=== PATIENT | male | born 1980 | race Caucasian/White ===

== ENCOUNTER → 2017-09-02 17:44 | Outpatient (CLI) | payer SELFPAY | PROVIDERS: Visit Provider Anesthesiology Pain Medicine | DX: F11.20 Opioid dependence, uncomplicated (principal); Z79.899 Other long term (current) drug therapy ==

== ENCOUNTER → 2017-10-26 18:06 | Outpatient (CLI) | payer SELFPAY ==
[2017-10-26 18:59] LABS: Amphetamine Urine VISTA NEGATIVE (<1000 ng/mL); Barbiturate Urine VISTA NEGATIVE (< 200 ng/mL); Benzodiazepine Urine VISTA NEGATIVE (< 200 ng/mL); Cocaine Urine VISTA NEGATIVE (< 300 ng/mL); Ecstacy Urine VISTA NEGATIVE (< 500 ng/mL); Methadone Urine VISTA NEGATIVE (< 300 ng/mL); PCP Urine VISTA NEGATIVE (< 25 ng/mL); THC Urine VISTA NEGATIVE (< 50 ng/mL); Vista UDS pH Range 5
== END ==
PROVIDERS: Visit Provider Anesthesiology Pain Medicine
DX: F11.20 Opioid dependence, uncomplicated (principal)
CPT/HCPCS: 80307

== ENCOUNTER 2017-12-08 21:44 | Observation (INO) | payer SELFPAY ==
[2017-12-08 21:45] VITALS: BP 187/84; PULSE 121; RESP 26; TEMP 37.1; O2SAT 88; BMI 36.9
--- NOTE | 2017-12-08 22:46 | EKG12_ITS ---
Test Reason : OVERDOSE Blood Pressure : / mmHG Vent. Rate : 108 BPM Atrial Rate : 108 BPM P-R Int : 164 ms QRS Dur : 072 ms QT Int : 332 ms P-R-T Axes : 042 016 000 degrees QTc Int : 444 ms Sinus tachycardia Otherwise normal ECG Confirmed by SALINA WRIGHT ([id number]), society editor BEAU OLSON ([id number] on 12/14/2017 1:38:40 PM Referred By: VERN Confirmed By:SALINA WRIGHT
--- NOTE | 2017-12-08 22:49 | NURSING ---
NO OLD EKGS IN MUSE.
[2017-12-08 22:54] VITALS: BP 150/98; PULSE 109; RESP 12; O2SAT 92
[2017-12-08 23:03] VITALS: BP 150/98; PULSE 114; RESP 14; O2SAT 92
[2017-12-08] MEDS: 0.9% Normal Saline 1,000 ML 150 ML IV (23:04)
[2017-12-08 23:09] LABS: Absolute Lymphocyte Count 1.58 X10^3/ul (0.83-4.51); Absolute Neutrophil Count 9.5 X10^3/uL (2.0-7.7); Basophil# 0.01 X10^3/uL; Basophil% 0.1 % (0-1); Eosinophil# 0.36 X10^3/uL; Eosinophils% 2.9 % (0-5); Hematocrit 44.3 % (40-54); Lymphocyte # 1.58 X10^3/ul (4.0); Lymphocyte % 12.8 % (19-41); Mean Corp Hgb Conc 33.9 g/gl (32-36); Mean Corpuscular Hgb 29.9 pg (27.0-32.0); Mean Corpuscular Volume 88.4 fL (80-94); Mean Platelet Vol. 9.3 fl (6.2-12.0); Monocyte# 0.88 X10^3/uL; Monocyte% 7.1 % (0-10); Neutrophil # 9.54 X10^3/uL (2.7-7.7); Neutrophil % 76.9 % (47-70); Platelet Count 342 K/mm3 (150-450); RBC Distribution Width SD 41.9 fl (35.1-43.9); Red Blood Count 5.01 M/mm3 (4.6-6.2); White Blood Count 12.4 K/mm3 (4.4-11.0)
[2017-12-08 23:10] LABS: POSITIVE COUNT NO; POSITIVE DIFFERENTIAL NO; POSITIVE MORPHOLOGY NO
[2017-12-08 23:20] LABS: Alcohol, Blood (Medical)-Serum < 3.0 mg/dL
[2017-12-08 23:25] LABS: Anion Gap 8 (5-15); BUN 12 mg/dL (7-18); BUN/Creat Ratio 11.4 RATIO (10-20); Chloride 102 mmol/L (98-107); Creatinine, Serum 1.05 mg/dL (0.70-1.30); EST Glomerular Filtration Rate 84 mL/min (>60); Est Glom Filt Rate - Afr Amer 102 mL/min (>60); Estimated Creatinine Clearance 108.86 ml/min; Glucose 113 mg/dL (74-106); Lactic Acid 1.3 mmol/L (0.4-2.0); Potassium 3.6 mmol/L (3.5-5.1); Sodium Level 139 mmol/L (136-145)
[2017-12-08 23:45] LABS: BNP,B-Type NATRIURETIC PEPTIDE 15.4 pg/mL (0-100)
--- NOTE | 2017-12-08 23:58 | ED.VISSUMM ---
- ER Visit Summary Date of Service: 12/08/17 Chief Complaint: [Drug overdose] History of Present Illness: The patient is a 37 M [presents the emergency department after using heroin tonight. Patient was found by his girlfriend in the car unresponsive. EMS was called who then gave Narcan. Patient did vomit after Narcan. On arrival patient denies feeling suicidal. Patient has been using heroin for the last 4 days. He supposed to be on Suboxone but has not been using it. Patient denies any chest pain. He denies recent illness.] Physical Examination: [HEENT-PERRLA, EOMI. Cranial nerves II through XII grossly intact. TMs clear. Mucous membranes moist. No adenopathy. Cardiovascular-regular rate and rhythm without murmur or ectopy Lungs-clear to auscultation, chest wall stable without crepitus or subcu emphysema Abdomen-normoactive bowel sounds, soft, nontender, no rebound or rigidity, no peritoneal signs. Extremities-intact ?4, normal range of motion, normal pulses, atraumatic]. Patient has +2 edema bilateral lower extremities. Test Results: [EKG obtained on arrival showed a sinus tachycardia with a ventricular rate of 108 bpm. CBC with differential obtained showed a white count 12.4, hemoglobin 15, hematocrit 44, platelet 342. Chemistries unremarkable. Troponin was less than 0.015. BNP was 15. Lactate was 1.3. Alcohol was less than 3. Toxicology screen pending.] Chest x-ray was normal. Emergency Department Course and Treatment: [She was placed on 2 L nasal cannula O2 as his initial O2 sat was 88% on room air.] Treatment Plan: [Admit for observation as there is concern for possible aspiration.] Disposition: [Admit] Impression: [Heroin overdose Hypoxemia with concern for aspiration Bilateral leg edema] This note was generated with [employer] dictation software. It may contain incorrect words, spelling, and punctuation that were not noted in review of the chart prior to signing ED Disposition - Plan for ED Patient: Chief Complaint: Overdose Referrals: Care Physician,No Primary [Primary Care Provider] -
[2017-12-09 00:06] VITALS: BP 170/112; PULSE 100; RESP 15; O2SAT 96
[2017-12-09 00:07] LABS: Amphetamine Urine VISTA NEGATIVE (<1000 ng/mL); Barbiturate Urine VISTA NEGATIVE (< 200 ng/mL); Benzodiazepine Urine VISTA NEGATIVE (< 200 ng/mL); Cocaine Urine VISTA NEGATIVE (< 300 ng/mL); Ecstacy Urine VISTA NEGATIVE (< 500 ng/mL); Methadone Urine VISTA NEGATIVE (< 300 ng/mL); PCP Urine VISTA NEGATIVE (< 25 ng/mL); THC Urine VISTA NEGATIVE (< 50 ng/mL); Vista UDS pH Range 6
--- NOTE | 2017-12-09 00:22 | PCM.HP.STD ---
Problem List (1) Polysubstance dependence Status: Acute (2) Heroin overdose Status: Acute History of Present Illness Date of Admission: 12/09/17 Chief Complaint: Unresponsiveness secondary to heroin overdose ? few hours. The patient is a 37 year old M with a significant history of hypertension, tobacco abuse and heroine use who was found unresponsive by his girlfriend after an heroine overdose. Patient was brought to the emergency department by paramedics. By the emergency room doctor, paramedics reported that patient was in agonal respiration. The patient was given Narcan by the paramedics and he became responsive. Patient vomited after Narcan administration. His oxygen saturation was 82% on room air. At emergency department patient was placed on 2 L of nasal cannula that brought his oxygen saturation to the lower 90s. Patient reports that he has been taking Suboxone and he follows up with for his Suboxone. Past Medical History Medical History: Medical History (Last Updated 12/09/17 @ 01:24 by Angel Gerardo MD) Hypertension I10 Allergies No Known Allergies Allergy (Verified 12/08/17 22:17) Home Medications: Ambulatory Orders Medication Instructions Recorded Buprenorphine HCl/Naloxone HCl 1 film SUBLINGUAL DAILY 12/08/17 [Suboxone 8 mg-2 mg Sl Film] Surgical History: arthroscopy, knee - Right, - - To placing right arm. Lives: With Family Smoking Status: Never smoker Tobacco Use: Chew Alcohol: Occasional - *Family History Maternal History Items: Cancer Paternal History Items: Cancer, Heart Disease Review of Systems Constitutional: Denies: Chills, Fever, Weight Change HEENT: Denies: Head Aches, Sinus Congestion, Sinus Drainage Cardiovascular: Reports: Edema - Bilateral legs. Denies: Palpitations Respiratory: Denies: Cough, Shortness of breath at rest, Sputum production Gastrointestinal: Denies: Abdominal Pain, Nausea, Vomiting Genitourinary: Denies: Dysuria Musculoskeletal: Denies: Joint Pain, Joint Tenderness Skin: Denies: Rash, Wounds Neurological: Denies: Numbness, Tingling, Focal weakness Psychiatric: Denies: Anxiety, Depression, Homicidal Ideations, Suicidal Ideations Hematologic/ Lymphatic: Denies: Easy Bruising, Easy Bleeding VTE Information - Inpt Only VTE Present on Admission: No VTE Mechan Device Prophylaxis: None VTE Pharm Prophylaxis ordered?: No Reason prophylaxis not ordered:: Treatment Not Indicated - Low risk. Patient Problems: Active and Suspected Problems Polysubstance dependence (Acute) Heroin overdose (Acute) - Physical Exam General: Alert, Oriented x3, Cooperative HEENT: Atraumatic, - Neck: Supple, No JVD, Negative Carotid Bruits Lungs: Clear to auscultation, Normal air movement Cardiovascular: Normal S1, Normal S2, Tachycardic Abdomen: Bowel Sounds Present, Soft, Non Tender Extremities: Capillary Refill Less than 3 Seconds, Edema - 1+ bilateral lower legs. Skin: Ulcer/ Wound - Multiple everton-oral ulcers., - Musculoskeletal: No Tenderness to Palpation of Joints or Extremities Neurological: Cranial nerves II-XII grossly intact Psych/Mental Status: Normal Affect, Appropriate Vital Signs Temp Pulse Resp BP Pulse Ox 98.8 F 100 15 170/112 H 96 12/08/17 21:45 12/09/17 00:06 12/09/17 00:06 12/09/17 00:06 12/09/17 00:06 Oxygen Flow Rate (L/min) 2 Oxygen Delivery Method Nasal Cannula Weight: 127.006 kg Body Mass Index (BMI) 36.9 Laboratory Tests Past 24 Hrs 12/08/17 12/08/17 12/08/17 20:05 22:50 22:50 WBC 12.4 H RBC 5.01 Hgb 15.0 Hct 44.3 MCV 88.4 MCH 29.9 MCHC 33.9 RDW 13.0 RDW Differential 41.9 Plt Count 342 MPV 9.3 Immature Gran % (Auto) 0.200 Neut % (Auto) 76.9 H Lymph % (Auto) 12.8 L [place] % (Auto) 7.1 Eos % (Auto) 2.9 Baso % (Auto) 0.1 Absolute Neuts (auto) 9.5 H Absolute Lymphs (auto) 1.58 Total Counted Not Reportable Sodium 139 Potassium 3.6 Chloride 102 Carbon Dioxide 29.0 Anion Gap 8 BUN 12 Creatinine 1.05 Estim Creat Clear Calc 108.86 Est GFR (MDRD) Af Amer 102 Est GFR (MDRD) Non-Af 84 BUN/Creatinine Ratio 11.4 Glucose 113 H Lactic Acid Calcium 9.0 Troponin I < 0.015 B-Natriuretic Peptide Urine Opiates Screen POSITIVE H Urine Methadone Screen NEGATIVE Ur Barbiturates Screen NEGATIVE Ur Phencyclidine Scrn NEGATIVE Ur Amphetamines Screen NEGATIVE U Methamphetamin-MDMA NEGATIVE U Benzodiazepines Scrn NEGATIVE Urine Cocaine Screen NEGATIVE U Cannabinoids Screen NEGATIVE Ur Drug Screen Comment Ethyl Alcohol 12/08/17 12/08/17 12/08/17 22:50 22:50 22:50 WBC RBC Hgb Hct MCV MCH MCHC RDW RDW Differential Plt Count MPV Immature Gran % (Auto) Neut % (Auto) Lymph % (Auto) [place] % (Auto) Eos % (Auto) Baso % (Auto) Absolute Neuts (auto) Absolute Lymphs (auto) Total Counted Sodium Potassium Chloride Carbon Dioxide Anion Gap BUN Creatinine Estim Creat Clear Calc Est GFR (MDRD) Af Amer Est GFR (MDRD) Non-Af BUN/Creatinine Ratio Glucose Lactic Acid 1.3 Calcium Troponin I B-Natriuretic Peptide 15.4 Urine Opiates Screen Urine Methadone Screen Ur Barbiturates Screen Ur Phencyclidine Scrn Ur Amphetamines Screen U Methamphetamin-MDMA U Benzodiazepines Scrn Urine Cocaine Screen U Cannabinoids Screen Ur Drug Screen Comment Ethyl Alcohol < 3.0 Assessment/Plan All Active Problems Polysubstance dependence (Acute) Heroin overdose (Acute) The patient is a 37 year old M with a significant history of hypertension, tobacco abuse and heroine use who was found unresponsive by his girlfriend after an heroine overdose. Polysubstance Dependence with heroin overdose at admission Clinical monitoring. Oxygen saturation is in the higher 90s on 2 L. Oxygen as needed Resume Suboxone in a.m. If white count elevated or if signs of fever consider aspiration pneumonitis/aspiration pneumonia because of vomiting after administration. If patient is stable, follow up with Dr. Kenney for substance dependence managements. Tobacco abuse Patient chew tobacco Was counseled Refused a nicotine patch. Hypertension Above goal at the time of admission. The patient reports that her blood pressure has been elevated several times outpatient. HCTZ started. Bilateral leg edema. Patient reports bilateral leg edema for 1 months. Outpatient follow-up. DVT prophylaxis low risk.
[2017-12-09 01:15] VITALS: BP 159/88; PULSE 94; RESP 12; O2SAT 97
[2017-12-09 02:03] VITALS: BMI 38.7
[2017-12-09 02:05] VITALS: BP 149/99; PULSE 85; RESP 13; TEMP 36.4; O2SAT 98
[2017-12-09 02:11] VITALS: BMI 38.8
[2017-12-09] MEDS: HYDROCHLOROTHIAZIDE 12.5 MG CAPSULE PO (02:45)
[2017-12-09 06:05] VITALS: BP 153/104; PULSE 81; RESP 16; TEMP 36.7; O2SAT 99
[2017-12-09 06:36] LABS: Absolute Lymphocyte Count 3.28 X10^3/ul (0.83-4.51); Absolute Neutrophil Count 5.3 X10^3/uL (2.0-7.7); Basophil# 0.01 X10^3/uL; Basophil% 0.1 % (0-1); Eosinophil# 0.38 X10^3/uL; Hematocrit 44.6 % (40-54); Hemoglobin 14.5 g/dl (13.0-16.5); Lymphocyte # 3.28 X10^3/ul (4.0); Lymphocyte % 34.2 % (19-41); Mean Corp Hgb Conc 32.5 g/gl (32-36); Mean Corpuscular Hgb 29.6 pg (27.0-32.0); Mean Platelet Vol. 9.3 fl (6.2-12.0); Monocyte# 0.62 X10^3/uL; Monocyte% 6.5 % (0-10); Neutrophil # 5.28 X10^3/uL (2.7-7.7); Neutrophil % 55.1 % (47-70); Platelet Count 338 K/mm3 (150-450); RBC Distribution Width CV 13.3 % (11.6-14.6); RBC Distribution Width SD 43.6 fl (35.1-43.9); White Blood Count 9.6 K/mm3 (4.4-11.0)
[2017-12-09 06:40] LABS: POSITIVE COUNT NO; POSITIVE DIFFERENTIAL NO; POSITIVE MORPHOLOGY NO
[2017-12-09 07:09] LABS: Anion Gap 6 (5-15); BUN 12 mg/dL (7-18); BUN/Creat Ratio 10.9 RATIO (10-20); Calcium,Total 8.7 mg/dL (8.5-10.1); Chloride 101 mmol/L (98-107); EST Glomerular Filtration Rate 80 mL/min (>60); Est Glom Filt Rate - Afr Amer 97 mL/min (>60); Estimated Creatinine Clearance 103.91 ml/min; Glucose 100 mg/dL (74-106); Potassium 3.8 mmol/L (3.5-5.1); Sodium Level 141 mmol/L (136-145)
[2017-12-09 08:35] VITALS: BP 158/98; PULSE 80; RESP 18; TEMP 36.4; O2SAT 95
--- NOTE | 2017-12-09 09:24 | PCM.DC ---
- Discharge Diagnoses Current Active Problems: Current Active and Chronic Problems (Last Updated 12/09/17 @ 01:24 by Angel Gerardo MD) Polysubstance dependence (Acute) Heroin overdose (Acute) Reason(s) for Visit for Discharge Instructions: Heroin overdose You will use the following diet at home:: Cardiac Your food should be the consistency of: Regular Your liquids should be the consistency of: Regular/Thin Discharge Activity: Return to Normal Activity Additional Instructions: Take all your medications. Continue to exercise and diet to lose weight. You should measure your BP daily. Follow-up with your PCP within 2 weeks. You will need to repeat blood work within 1 week. Allergies/Adverse Reactions: Allergies No Known Allergies Allergy (Verified 12/08/17 22:17) Medications to take at Discharge Buprenorphine HCl/Naloxone HCl [Suboxone 8 mg-2 mg Sl Film] 1 film SUBLINGUAL DAILY 12/08/17 Hydrochlorothiazide 12.5 mg PO DAILY #30 cap 12/09/17 The following prescriptions were given: Hydrochlorothiazide 12.5 mg PO DAILY #30 cap Primary Care Physician: Care Physician,No Primary [Primary Care Provider] - Please follow up with your Primary Care Physician in: within 2 weeks Test Results: Test results from this visit will be discussed in further detail at your follow-up appointment, if applicable. Proposed Discharge Date: 12/09/17
--- NOTE | 2017-12-09 09:33 | PCM.DC.SUM ---
Discharge Date and Diagnosis Date of Admission: 12/09/17 Date of Discharge: 12/09/17 - Primary Discharge Diagnosis Active and Suspected Problems (Last Updated 12/09/17 @ 01:24 by Angel Gerardo MD) Polysubstance dependence (Acute) Heroin overdose (Acute) Hospital Course and Treatment Imaging Results: Clinical Impression(s) from Imaging Studies Chest X-Ray 12/08/17 22:45 IMPRESSION: Normal x-ray examination of the chest. Electronically Signed: Armando Alegria MD at 23:23 EDT , Service support , None Operations: None Procedures: None Summary of Care Provided: 37 year old M with PMHx of hypertension, morbid obesity, history of polysubsatnce use, follows with in the outpatient who comes in after being found unresponsive by his girlfriend after a heroine overdose. Patient was brought to the emergency department by paramedics. He was reportedly having agonal breathing and given Narcan by the paramedics after which he became responsive. Patient is said to have vomited after Narcan administration. His oxygen saturation was 82% on room air. This rapidly improved with oxygen administration. Chest x-ray was normal. Blood cultures taken in ED were negative. He was admitted and monitored in a telemetry bed with no acute events and resolution of his respiratory insufficiency. Patient insisted on discharge to follow-up with Dr. Kenney because he had an appointment on the day of discharge for his Suboxone. Discharge Diet: No Restrictions Discharge Activity: Return to Normal Activity Home Medications: Medications to take at Discharge Hydrochlorothiazide 12.5 mg PO DAILY #30 cap 12/09/17 Following Prescrptions Were Given to Patient: Hydrochlorothiazide 12.5 mg PO DAILY #30 cap Primary Care Physician: Care Physician,No Primary [Primary Care Provider] - Please follow up with your Primary Care Physician in: within 2 weeks Disposition: Home Minutes spent on discharge:: 35 Patient Condition:: Stable Medical Necessity - Tobacco Use Smoking Status: Never smoker Tobacco Use: Chew Meaningful Use Info Meaningful Use Diagnoses (Choose all that apply): None applicable Code Visit OBSV E&M: 30935 Observation care discharge
[2017-12-09 11:04] VITALS: BP 146/90; PULSE 79; RESP 18; TEMP 36.7; O2SAT 95
--- NOTE | 2017-12-09 12:50 | CASEMGMT ---
Pt was discharged and left before SW had opportunity to speak w/pt. Pt did speak w/[facility] however and was given resources for substance abuse. HONG Lamb, [employer]
== END 2017-12-09 12:03 | disposition home or self-care (01) ==
LOC: ED 23:14 → MS2 12-09 01:45
PROVIDERS: Admitting Provider Hospitalist; Emergency Provider Emergency Medicine; Visit Provider Internal Medicine
DX: T40.1X1A Poisoning by heroin, accidental (unintentional), initial encounter (principal); I10 Essential (primary) hypertension; E66.01 Morbid (severe) obesity due to excess calories; Z68.38 Body mass index [BMI] 38.0-38.9, adult; Z71.3 Dietary counseling and surveillance; F17.220 Nicotine dependence, chewing tobacco, uncomplicated; R60.0 Localized edema; R09.02 Hypoxemia
CPT/HCPCS: 36415; 71045; 80048; 80307; 80320; 83605; 83880; 84484; 85025; 87040; 93005; 96360; 96361; 99218; 99285; J7030; A4216; G0378; G0480

== ENCOUNTER 2017-12-10 19:34 | Inpatient (IN) | payer SELFPAY ==
[2017-12-10 19:36] VITALS: BP 185/93; PULSE 99; RESP 18; TEMP 36.3; O2SAT 98; BMI 37.5
--- NOTE | 2017-12-10 20:51 | ED.VISSUMM ---
- ER Visit Summary Date of Service: 12/10/17 Chief Complaint: Opiate withdrawal History of Present Illness: The patient is a [address] Kenney. He reports that he had snorted heroin 4-5 times a day for proximal in the past 3 years. He had been on Suboxone for the past 3 months. However, he ran out of it last week and began snorting heroin again. Reports that he overdosed 2 days ago and has not used since. He denies any IV drug abuse. Patient reports that he spoke with Dr. Herrera who would like him to go through the [facility]. Ideally he would then be placed on Vivitrol rather than Suboxone. Physical Examination: Vitals: Stable. Afebrile. General: Well-nourished and well-developed. Head: Normocephalic atraumatic. Neck: Supple, no lymphadenopathy. No JVD. Nontender. Cardiovascular: Regular rate and rhythm. No murmurs. Respiratory: No respiratory distress. Clear to auscultation bilaterally. Abdominal: Soft, nontender, nondistended, normal bowel sounds. No guarding, rebound, or peritoneal signs. Back: Nontender. Extremities: Nontender, no edema. Skin: Normal color, no rash. Neurologic: Alert and oriented ?3. Cranial nerves II through XII are intact. Normal strength and sensation. Psych: Normal affect. Emergency Department Course and Treatment: Patient's CIWA score is 29. Treatment Plan: Patient was discussed with Dr. Levy. He will be admitted to the hospital for further evaluation and treatment. Disposition: Admitted in stable condition Impression: 1. Opiate withdrawal. This note was generated with [employer] dictation software. It may contain incorrect words, spelling, and punctuation that were not noted in review of the chart prior to signing ED Disposition - Plan for ED Patient: Chief Complaint: Substance Abuse Referrals: Care Physician,No Primary [Primary Care Provider] -
--- NOTE | 2017-12-10 20:54 | ED.DCSUM_ITS ---
- ER Visit Summary Date of Service: 12/10/17 Chief Complaint: Opiate withdrawal History of Present Illness: The patient is a [address] Kenney. He reports that he had snorted heroin 4-5 times a day for proximal in the past 3 years. He had been on Suboxone for the past 3 months. However, he ran out of it last week and began snorting heroin again. Reports that he overdosed 2 days ago and has not used since. He denies any IV drug abuse. Patient reports that he spoke with Dr. Herrera who would like him to go through the [facility] program. Ideally he would then be placed on Vivitrol rather than Suboxone. Physical Examination: Vitals: Stable. Afebrile. General: Well-nourished and well-developed. Head: Normocephalic atraumatic. Neck: Supple, no lymphadenopathy. No JVD. Nontender. Cardiovascular: Regular rate and rhythm. No murmurs. Respiratory: No respiratory distress. Clear to auscultation bilaterally. Abdominal: Soft, nontender, nondistended, normal bowel sounds. No guarding, rebound, or peritoneal signs. Back: Nontender. Extremities: Nontender, no edema. Skin: Normal color, no rash. Neurologic: Alert and oriented ?3. Cranial nerves II through XII are intact. Normal strength and sensation. Psych: Normal affect. Emergency Department Course and Treatment: Patient's CIWA score is 29. Treatment Plan: Patient was discussed with Dr. Levy. He will be admitted to the hospital for further evaluation and treatment. Disposition: Admitted in stable condition Impression: 1. Opiate withdrawal. This note was generated with [employer] dictation software. It may contain incorrect words, spelling, and punctuation that were not noted in review of the chart prior to signing ED Disposition - Plan for ED Patient: Chief Complaint: Substance Abuse Referrals: Care Physician,No Primary [Primary Care Provider] -
--- NOTE | 2017-12-10 21:04 | PCM.HP.STD ---
Problem List (1) Polysubstance dependence Status: Acute (2) Heroin overdose Status: Acute History of Present Illness Date of Admission: 12/10/17 Chief Complaint: Opiate withdrawal The patient is a 37 year old male w/ h/o HTN, tobacco abuse, and heroin abuse is admitted for heroin withdrawal. He was recently admitted 2 days ago for heroin overdose. At that time her had agonal breathing and was given narcan. When awoke, he did not want to participate in the [facility] program and was discharged. He spoke to Dr. Herrera today and Dr. Herrera would like him to go through the [facility] program so he came back to the ED. He has a long history of heroin abuse. He has been using heroin 4-5 times / day for the past 3 years. He also has been on suboxone for 3 months. He ran out of suboxone and resulted back to snorting heroin. He use the same dose each time he uses. He has been having restless leg and anxiety with mild abdominal pain. Pain is constant and cramping. Nothing made it better or worse. Pain has been ongoing for the past few days. Past Medical History Medical History: Medical History (Last Reviewed 12/11/17 @ 05:36 by Kraig Levy MD) Hypertension I10 Allergies No Known Allergies Allergy (Verified 12/10/17 19:36) Home Medications: Ambulatory Orders Medication Instructions Recorded Hydrochlorothiazide 12.5 mg PO DAILY #30 cap 12/09/17 Surgical History: arthroscopy, knee - Right, - - To placing right arm. Lives: Spouse/ Significant Other Smoking Status: Never smoker - *Family History Maternal History Items: Cancer Paternal History Items: Cancer, Heart Disease Review of Systems Constitutional: Denies: Chills, Fever, Weight Change HEENT: Denies: Head Aches, Sinus Congestion, Sinus Drainage Cardiovascular: Denies: Chest Pain, Palpitations Respiratory: Denies: Cough, Shortness of breath at rest, Sputum production Gastrointestinal: Reports: Abdominal Pain. Denies: Nausea, Vomiting Genitourinary: Denies: Dysuria Musculoskeletal: Denies: Joint Pain, Joint Tenderness Skin: Denies: Rash, Wounds Neurological: Denies: Numbness, Tingling, Focal weakness Psychiatric: Denies: Anxiety, Depression, Homicidal Ideations, Suicidal Ideations Hematologic/ Lymphatic: Denies: Easy Bruising, Easy Bleeding VTE Information - Inpt Only VTE Present on Admission: No VTE Mechan Device Prophylaxis: SCD's VTE Pharm Prophylaxis ordered?: Yes - Physical Exam General: Alert, Oriented x3, Cooperative HEENT: Atraumatic, PERRLA, EOMI, Normocephalic Neck: Supple, No JVD, Negative Carotid Bruits Lungs: Clear to auscultation, Normal air movement Cardiovascular: Regular rate, No murmurs Abdomen: Bowel Sounds Present, Soft, Non Tender Extremities: Capillary Refill Less than 3 Seconds, Edema - 1+ edema Skin: No rashes, No breakdown Musculoskeletal: No Tenderness to Palpation of Joints or Extremities Neurological: Cranial nerves II-XII grossly intact Psych/Mental Status: Normal Affect, Appropriate Vital Signs Temp Pulse Resp BP Pulse Ox 97.4 F L 99 18 185/93 H 98 12/10/17 19:36 12/10/17 19:36 12/10/17 19:36 12/10/17 19:36 12/10/17 19:36 Assessment/Plan All Active Problems (Last Reviewed 12/11/17 @ 05:36 by Kraig Levy MD) Polysubstance dependence (Acute) Heroin overdose (Acute) 37 year old male w/ h/o HTN, tobacco abuse, and heroin abuse is admitted for heroin withdrawal. 1) Heroin withdrawal: Will give supportive care. [facility] consulted. Withdrawal symptoms appear mild to moderate. 2) HTN: Resume home meds. Monitor. 3) Prophylaxis: SCD.
[2017-12-10 21:40] VITALS: BMI 37.5
[2017-12-10 21:45] VITALS: BMI 37.5
[2017-12-10 22:00] VITALS: BP 166/109; PULSE 86; RESP 16; TEMP 37.3
[2017-12-10 22:13] VITALS: BP 166/109; PULSE 86; RESP 16; TEMP 37.3; O2SAT 100
[2017-12-10 22:34] LABS: Absolute Neutrophil Count 5.5 X10^3/uL (2.0-7.7); Basophil# 0.01 X10^3/uL; Basophil% 0.1 % (0-1); Eosinophil# 0.22 X10^3/uL; Eosinophils% 2.4 % (0-5); Hematocrit 47.2 % (40-54); Hemoglobin 16.1 g/dl (13.0-16.5); Mean Corp Hgb Conc 34.1 g/gl (32-36); Mean Corpuscular Hgb 30.1 pg (27.0-32.0); Mean Corpuscular Volume 88.2 fL (80-94); Mean Platelet Vol. 9.4 fl (6.2-12.0); Monocyte# 0.53 X10^3/uL; Monocyte% 5.9 % (0-10); Neutrophil # 5.46 X10^3/uL (2.7-7.7); Neutrophil % 60.5 % (47-70); Platelet Count 376 K/mm3 (150-450); RBC Distribution Width CV 12.6 % (11.6-14.6); RBC Distribution Width SD 40.1 fl (35.1-43.9); Red Blood Count 5.35 M/mm3 (4.6-6.2)
[2017-12-10] MEDS: chlordiazePOXIDE 25 MG Capsule PO (22:36)
[2017-12-10] MEDS: cloNIDine HCl 0.1 MG Tablet PO (22:36)
[2017-12-10] MEDS: traZODone 50 MG Tablet PO (22:36)
[2017-12-10 22:38] LABS: POSITIVE COUNT NO; POSITIVE DIFFERENTIAL NO; POSITIVE MORPHOLOGY NO
[2017-12-10 22:40] LABS: Bacteria 0 SEEN /hpf (None Seen); Mucous, Urine 0 SEEN /hpf (<or=2+); Red Blood Cells-Urine 0 SEEN /hpf (0-5); Squamous Epithelial Cells - UA 0 SEEN /hpf (0-5); White Blood Cells 0 SEEN /hpf (0-5)
[2017-12-10 22:42] LABS: Color, Urine Yellow (Yellow); Glucose, Dipstick Normal (Normal); Ketone-Dipstick Negative (Negative); Leukocyte Esterase-Dipstick Negative /ul (Negative); Nitrite-Dipstick Negative (Negative); Occult Blood-Urine Negative /ul (Negative); Protein-Dipstick 15 mg/dl (Negative); Specific Gravity, Urine 1.015 (1.002-1.030); Urine Bilirubin Dipstick Negative (Negative); Urine Clarity Clear (Clear); Urine Urobilinogen Normal (Normal)
[2017-12-10 22:45] LABS: International Normalized Ratio 0.9; Prothrombin Time (Protime)PT. 12.5 SECONDS (11.7-14.9)
[2017-12-10 22:55] LABS: Amphetamine Urine VISTA NEGATIVE (<1000 ng/mL); Barbiturate Urine VISTA NEGATIVE (< 200 ng/mL); Benzodiazepine Urine VISTA NEGATIVE (< 200 ng/mL); Cocaine Urine VISTA NEGATIVE (< 300 ng/mL); Ecstacy Urine VISTA NEGATIVE (< 500 ng/mL); Methadone Urine VISTA NEGATIVE (< 300 ng/mL); PCP Urine VISTA NEGATIVE (< 25 ng/mL); THC Urine VISTA NEGATIVE (< 50 ng/mL); Vista UDS pH Range 7
[2017-12-10 22:59] LABS: ALB/GLOB Ratio 0.8 RATIO (0.9-2.4); AST(SGOT) 35 U/L (15-37); Alanine Aminotransfer ALT/SGPT 65 U/L (16-61); Albumin, Serum 3.7 g/dL (3.2-5.0); Alkaline Phosphatase 96 U/L (45-117); Amylase 33 U/L (25-115); Anion Gap 7 (5-15); BUN 12 mg/dL (7-18); BUN/Creat Ratio 12.4 RATIO (10-20); Calcium,Total 9.6 mg/dL (8.5-10.1); Chloride 100 mmol/L (98-107); Creatinine, Serum 0.97 mg/dL (0.70-1.30); EST Glomerular Filtration Rate 92 mL/min (>60); Est Glom Filt Rate - Afr Amer 112 mL/min (>60); Estimated Creatinine Clearance 117.84 ml/min; Globulin 4.6 g/dL (2.2-4.2); Glucose 81 mg/dL (74-106); Lipase 82 U/L (73-393); Potassium 3.8 mmol/L (3.5-5.1); Protein, Total 8.3 g/dL (6.4-8.2); Sodium Level 137 mmol/L (136-145)
[2017-12-11] VITALS (7 sets, daily range): BP systolic 139–178; BP diastolic 75–112; PULSE 84–98; RESP 16–18; TEMP 36.7–36.9; O2SAT 97
[2017-12-11 03:36] LABS: Absolute Lymphocyte Count 2.78 X10^3/ul (0.83-4.51); Absolute Neutrophil Count 4.1 X10^3/uL (2.0-7.7); Basophil# 0.01 X10^3/uL; Basophil% 0.1 % (0-1); Eosinophils% 5.1 % (0-5); Hematocrit 45.8 % (40-54); Lymphocyte # 2.78 X10^3/ul (4.0); Lymphocyte % 35.2 % (19-41); Mean Corp Hgb Conc 34.9 g/gl (32-36); Mean Corpuscular Hgb 30.2 pg (27.0-32.0); Mean Corpuscular Volume 86.4 fL (80-94); Mean Platelet Vol. 9.1 fl (6.2-12.0); Monocyte# 0.61 X10^3/uL; Monocyte% 7.7 % (0-10); Neutrophil # 4.08 X10^3/uL (2.7-7.7); Neutrophil % 51.8 % (47-70); Platelet Count 398 K/mm3 (150-450); RBC Distribution Width CV 12.5 % (11.6-14.6); RBC Distribution Width SD 39.3 fl (35.1-43.9); White Blood Count 7.9 K/mm3 (4.4-11.0)
[2017-12-11 03:40] LABS: Differential Indicated SCAN CRITERIA MET; POSITIVE COUNT NO; POSITIVE DIFFERENTIAL NO; POSITIVE MORPHOLOGY YES
[2017-12-11 03:51] LABS: ALB/GLOB Ratio 0.8 RATIO (0.9-2.4); AST(SGOT) 30 U/L (15-37); Alanine Aminotransfer ALT/SGPT 62 U/L (16-61); Albumin, Serum 3.4 g/dL (3.2-5.0); Alkaline Phosphatase 88 U/L (45-117); Anion Gap 9 (5-15); BUN 13 mg/dL (7-18); BUN/Creat Ratio 13.3 RATIO (10-20); Calcium,Total 9.1 mg/dL (8.5-10.1); Chloride 99 mmol/L (98-107); Creatinine, Serum 0.98 mg/dL (0.70-1.30); EST Glomerular Filtration Rate 92 mL/min (>60); Est Glom Filt Rate - Afr Amer 111 mL/min (>60); Estimated Creatinine Clearance 116.63 ml/min; Globulin 4.4 g/dL (2.2-4.2); Glucose 107 mg/dL (74-106); Potassium 3.7 mmol/L (3.5-5.1); Protein, Total 7.8 g/dL (6.4-8.2); Sodium Level 139 mmol/L (136-145)
[2017-12-11 04:04] LABS: Differential Comment SCANNED
[2017-12-11] MEDS: chlordiazePOXIDE 25 MG Capsule PO ×4 (04:41→23:53)
--- NOTE | 2017-12-11 05:43 | NURSING ---
left message for [facility] to notify them of pt admit. pt states he spoke to [facility] earlier this week
[2017-12-11] MEDS: Pramipexole Di-HCl 0.25 MG Tablet PO ×2 (10:11→23:53)
[2017-12-11] MEDS: cloNIDine HCl 0.1 MG Tablet PO ×4 (10:11→21:43)
[2017-12-11] MEDS: Dicyclomine 10 MG Capsule 20 MG PO ×2 (10:11→16:35)
[2017-12-11] MEDS: Methocarbamol 750 MG Tablet PO ×3 (10:11→23:53)
[2017-12-11] MEDS: HYDROCHLOROTHIAZIDE 12.5 MG CAPSULE PO (10:11)
[2017-12-11] MEDS: hydrOXYzine PAM 25 MG Capsule 50 MG PO ×3 (10:11→23:54)
--- NOTE | 2017-12-11 10:14 | PCM.PN.HOSP ---
Subjective: Complains of abdominal cramps, rhinitis, restless legs. States that he received Subutex through Dr. Kenney, when he runs out, he reverts to heroin. States that he must be off Subutex for 5 days before he starts Vivitrol. Is to follow up with Dr. Kenney next week for this. Vitals/I&O's: Vital Signs Temp Pulse Resp BP Pulse Ox 36.8 C 95 18 178/109 H 97 12/11/17 10:06 12/11/17 10:06 12/11/17 10:12/11/17 10:12/11/17 02:15 Oxygen Delivery Method Room Air Weight: 128.911 kg Body Mass Index (BMI) 37.5 Intake and Output for Last 24 Hours 12/09/17 12/10/17 12/11/17 23:59 23:59 23:59 Intake Total 600 / 600 Balance 600 / 600 General: Alert, No apparent distress HEENT: Atraumatic, Normocephalic Oral: Moist Mucosa, No Gingival or Mucosal Lesions/ Ulcerations Neck: No Nodes, Thyroid Normal Size and Texture Lungs: Clear to auscultation, Normal air movement, No rhonchi, No wheeze Cardiovascular: Regular rate, Regular Rhythm, Normal S1, Normal S2, No murmurs Abdomen: Bowel Sounds Present, Soft, Non Tender, Non-Distended, No Hepato-splenomegaly Extremities: No edema, No Calf Tenderness Skin: No rashes, No breakdown Psych/Mental Status: Appropriate, Flat Affect Laboratory Results 12/10/17 21:54: WBC 9.0, RBC 5.35, Hgb 16.1, Hct 47.2, MCV 88.2, MCH 30.1, MCHC 34.1, RDW 12.6, RDW Differential 40.1, Plt Count 376, MPV 9.4, Immature Gran % (Auto) 0.100, Neut % (Auto) 60.5, Lymph % (Auto) 31.0, Greeley % (Auto) 5.9, Eos % (Auto) 2.4, Baso % (Auto) 0.1, Absolute Neuts (auto) 5.5, Absolute Lymphs (auto) 2.80, Total Counted Not Reportable 12/10/17 21:54: PT 12.5, INR 0.9 12/10/17 21:54: Sodium 137, Potassium 3.8, Chloride 100, Carbon Dioxide 30.0, Anion Gap 7, BUN 12, Creatinine 0.97, Estim Creat Clear Calc 117.84, Est GFR (MDRD) Af Amer 112, Est GFR (MDRD) Non-Af 92, BUN/Creatinine Ratio 12.4, Glucose 81, Calcium 9.6, Total Bilirubin 0.40, AST 35, ALT 65 H, Alkaline Phosphatase 96, Troponin I < 0.015, Total Protein 8.3 H, Albumin 3.7, Globulin 4.6 H, Albumin/Globulin Ratio 0.8 L, Amylase 33, Lipase 82 12/10/17 21:55: Urine Opiates Screen NEGATIVE, Urine Methadone Screen NEGATIVE, Ur Barbiturates Screen NEGATIVE, Ur Phencyclidine Scrn NEGATIVE, Ur Amphetamines Screen NEGATIVE, U Methamphetamin-MDMA NEGATIVE, U Benzodiazepines Scrn NEGATIVE, Urine Cocaine Screen NEGATIVE, U Cannabinoids Screen NEGATIVE, Ur Drug Screen Comment 12/10/17 21:55: Urine Color Yellow, Urine Clarity Clear, Urine pH 8.0, Ur Specific Kennedy 1.015, Urine Protein 15 H, Urine Glucose (UA) Normal, Urine Ketones Negative, Urine Occult Blood Negative, Urine Nitrite Negative, Urine Bilirubin Negative, Urine Urobilinogen Normal, Ur Leukocyte Esterase Negative, Urine RBC 0 SEEN, Urine WBC 0 SEEN, Ur Squamous Epith Cells 0 SEEN, Urine Bacteria 0 SEEN, Urine Mucus 0 SEEN 12/11/17 00:30: Troponin I < 0.015 12/11/17 03:22: Troponin I < 0.015 12/11/17 03:22: WBC 7.9, RBC 5.30, Hgb 16.0, Hct 45.8, MCV 86.4, MCH 30.2, MCHC 34.9, RDW 12.5, RDW Differential 39.3, Plt Count 398, MPV 9.1, Immature Gran % (Auto) 0.100, Neut % (Auto) 51.8, Lymph % (Auto) 35.2, Greeley % (Auto) 7.7, Eos % (Auto) 5.1 H, Baso % (Auto) 0.1, Absolute Neuts (auto) 4.1, Absolute Lymphs (auto) 2.78, Total Counted Not Reportable, Differential Comment SCANNED 12/11/17 03:22: Sodium 139, Potassium 3.7, Chloride 99, Carbon Dioxide 31.0, Anion Gap 9, BUN 13, Creatinine 0.98, Estim Creat Clear Calc 116.63, Est GFR (MDRD) Af Amer 111, Est GFR (MDRD) Non-Af 92, BUN/Creatinine Ratio 13.3, Glucose 107 H, Calcium 9.1, Total Bilirubin 0.40, AST 30, ALT 62 H, Alkaline Phosphatase 88, Total Protein 7.8, Albumin 3.4, Globulin 4.4 H, Albumin/Globulin Ratio 0.8 L Current Medications Acetaminophen (Tylenol) 500 mg PO Q4H PRN PRN PRN Reason: Temp > 100.4 F Al Hydroxide/Mg Hydroxide (Mylanta Ii) 30 ml PO Q6H PRN PRN PRN Reason: dyspesia Chlordiazepoxide (Librium) 50 mg PO Q6H ETHAN PRN Reason: Taper Stop: 12/14/17 00:44 Last Admin: 12/11/17 10:07 Dose: 50 mg Clonidine (Catapres) 0.1 mg PO Q2H PRN PRN PRN Reason: Hot/Cold Sweats or Anxiety Last Admin: 12/11/17 10:11 Dose: 0.1 mg Dicyclomine HCl (Bentyl) 20 mg PO Q6H PRN PRN PRN Reason: Abdomnial Discomfort Last Admin: 12/11/17 10:11 Dose: 20 mg Hydrochlorothiazide (Hydrochlorothiazide) 12.5 mg PO DAILY [facility] Last Admin: 12/11/17 10:11 Dose: 12.5 mg Hydroxyzine HCl (Vistaril Vial) 50 mg IM Q6H PRN PRN PRN Reason: Breakthrough Anxiety Hydroxyzine Pamoate (Vistaril Pamoate Capsule) 50 mg PO Q6H PRN PRN PRN Reason: Mild Anxiety Last Admin: 12/11/17 10:11 Dose: 50 mg Loperamide HCl (Imodium) 2 - 4 mg PO UD PRN PRN Reason: LOOSE STOOLS Methocarbamol (Methocarbamol) 750 mg PO Q6H PRN PRN PRN Reason: Muscle Aches Last Admin: 12/11/17 10:11 Dose: 750 mg Ondansetron HCl (Zofran Odt) 4 mg PO Q6H PRN PRN PRN Reason: NAUSEA Pramipexole Dihydrochloride (Mirapex) 0.25 mg PO Q12H PRN PRN PRN Reason: Restless Legs Last Admin: 12/11/17 10:11 Dose: 0.25 mg Senna (Senokot) 1 tablet PO QHS PRN PRN Reason: Constipation Trazodone HCl (Desyrel) 50 mg PO QHS ETHAN Last Admin: 12/10/17 22:36 Dose: 50 mg Medical Necessity - Tobacco Use Smoking Status: Never smoker Assessment/Plan All Active Problems (Last Reviewed 12/11/17 @ 05:36 by Kraig Levy MD) Polysubstance dependence (Acute) Heroin overdose (Acute) 1. Acute opiate withdrawal not on Subutex as he needs 5 days off of opiates before initiating Vivitrol on librium additional medications for other somatic complaints. reviewed patient's OARRS report and discussed with him: he had been seeing someone in [place] for Subutex, then reverted back to heroin from 01/2017 to August 2017. Since then, he has been seeing Dr. Kenney for Subutex. However, when he runs out, he gets back on heroin. Code Visit Inpatient E&M: 56517 Subs Hosp L2
--- NOTE | 2017-12-11 11:45 | CASEMGMT ---
SW spoke with RN. Patient spoke to [facility] earlier in the week and they gave him resources. Patient wishes to go on Vivitrol. He sees Dr Kenney and he has an appt this next week. They plan on having [facility] see patient again on Wednesday. Patient did apply for Medicaid per [employer] information. Manuela ESPINAL
[2017-12-11] MEDS: Ondansetron ODT 4 MG Tablet PO (14:12)
[2017-12-11] MEDS: traZODone 50 MG Tablet PO (21:44)
[2017-12-12 02:00] VITALS: BP 162/94; PULSE 90; RESP 16; TEMP 36.7
--- NOTE | 2017-12-12 08:25 | PCM.PN.HOSP ---
Subjective: still with restless legs. no abdominal cramps. Vitals/I&O's: Vital Signs Temp Pulse Resp BP Pulse Ox 36.7 C 90 16 162/94 H 97 12/12/17 02:00 12/12/17 02:00 12/12/17 02:00 12/12/17 02:00 12/11/17 02:15 Oxygen Delivery Method Room Air Weight: 128.911 kg Body Mass Index (BMI) 37.5 Intake and Output for Last 24 Hours 12/10/17 12/11/17 12/12/17 23:59 23:59 23:59 Intake Total 1080 / 1080 350 / 350 Balance 1080 / 1080 350 / 350 General: Alert, No apparent distress HEENT: Atraumatic, Normocephalic Oral: Moist Mucosa, No Gingival or Mucosal Lesions/ Ulcerations Neck: No Nodes, Thyroid Normal Size and Texture Lungs: Clear to auscultation, Normal air movement, No rhonchi, No wheeze Cardiovascular: Regular rate, Regular Rhythm, Normal S1, Normal S2, No murmurs Abdomen: Bowel Sounds Present, Soft, Non Tender, Non-Distended, No Hepato-splenomegaly, Obese Extremities: No edema, No Calf Tenderness Skin: No rashes, No breakdown Psych/Mental Status: Normal Affect, Appropriate Current Medications Acetaminophen (Tylenol) 500 mg PO Q4H PRN PRN PRN Reason: Temp > 100.4 F Al Hydroxide/Mg Hydroxide (Mylanta Ii) 30 ml PO Q6H PRN PRN PRN Reason: dyspesia Chlordiazepoxide (Librium) 50 mg PO Q8H ETHAN PRN Reason: Taper Stop: 12/14/17 00:44 Last Admin: 12/11/17 23:53 Dose: 50 mg Clonidine (Catapres) 0.1 mg PO Q2H PRN PRN PRN Reason: Hot/Cold Sweats or Anxiety Last Admin: 12/11/17 21:43 Dose: 0.1 mg Dicyclomine HCl (Bentyl) 20 mg PO Q6H PRN PRN PRN Reason: Abdomnial Discomfort Last Admin: 12/11/17 16:35 Dose: 20 mg Hydrochlorothiazide (Hydrochlorothiazide) 12.5 mg PO DAILY [facility] Last Admin: 12/11/17 10:11 Dose: 12.5 mg Hydroxyzine HCl (Vistaril Vial) 50 mg IM Q6H PRN PRN PRN Reason: Breakthrough Anxiety Hydroxyzine Pamoate (Vistaril Pamoate Capsule) 50 mg PO Q6H PRN PRN PRN Reason: Mild Anxiety Last Admin: 12/11/17 23:54 Dose: 50 mg Loperamide HCl (Imodium) 2 - 4 mg PO UD PRN PRN Reason: LOOSE STOOLS Methocarbamol (Methocarbamol) 750 mg PO Q6H PRN PRN PRN Reason: Muscle Aches Last Admin: 12/11/17 23:53 Dose: 750 mg Ondansetron HCl (Zofran Odt) 4 mg PO Q6H PRN PRN PRN Reason: NAUSEA Last Admin: 12/11/17 14:12 Dose: 4 mg Pramipexole Dihydrochloride (Mirapex) 0.25 mg PO Q12H PRN PRN PRN Reason: Restless Legs Last Admin: 12/11/17 23:53 Dose: 0.25 mg Senna (Senokot) 1 tablet PO QHS PRN PRN Reason: Constipation Trazodone HCl (Desyrel) 50 mg PO QHS ETHAN Last Admin: 12/11/17 21:44 Dose: 50 mg Medical Necessity - Tobacco Use Smoking Status: Never smoker Assessment/Plan All Active Problems (Last Reviewed 12/11/17 @ 05:36 by Kraig Levy MD) Polysubstance dependence (Acute) Heroin overdose (Acute) 1. Acute opiate withdrawal not on Subutex as he needs 5 days off of opiates before initiating Vivitrol on librium additional medications for other somatic complaints. reviewed patient's OARRS report and discussed with him: he had been seeing someone in [place] for Subutex, then reverted back to heroin from 01/2017 to August 2017. Since then, he has been seeing Dr. Kenney for Subutex. However, when he runs out, he gets back on heroin. Plan is for discharge 12/13 to home, then patient will follow up with Dr. Kenney on 12/15 to start Vivitrol. Code Visit Inpatient E&M: 45439 Subs Hosp L2
[2017-12-12] MEDS: hydrOXYzine PAM 25 MG Capsule 50 MG PO ×2 (08:35→21:42)
[2017-12-12] MEDS: HYDROCHLOROTHIAZIDE 12.5 MG CAPSULE PO (08:35)
[2017-12-12] MEDS: Methocarbamol 750 MG Tablet PO (08:36)
[2017-12-12] MEDS: chlordiazePOXIDE 25 MG Capsule PO ×2 (08:36→16:23)
[2017-12-12] MEDS: cloNIDine HCl 0.1 MG Tablet PO ×3 (08:36→21:42)
[2017-12-12 08:37] VITALS: BP 131/99; PULSE 85; RESP 18; TEMP 36.7
[2017-12-12] MEDS: Ondansetron ODT 4 MG Tablet PO (16:25)
[2017-12-12] MEDS: Dicyclomine 10 MG Capsule 20 MG PO (16:25)
[2017-12-12] MEDS: Loperamide 2 MG Capsule PO (16:25)
[2017-12-12] MEDS: Pramipexole Di-HCl 0.25 MG Tablet PO (16:25)
[2017-12-12 16:26] VITALS: BP 146/101; PULSE 94; RESP 18; TEMP 36.9
[2017-12-12] MEDS: traZODone 50 MG Tablet PO (21:42)
[2017-12-12 22:00] VITALS: BP 111/71; PULSE 103; RESP 18; TEMP 37
[2017-12-13] MEDS: chlordiazePOXIDE 25 MG Capsule PO ×3 (00:04→16:21)
[2017-12-13] MEDS: Dicyclomine 10 MG Capsule 20 MG PO ×2 (00:04→08:41)
[2017-12-13 01:30] VITALS: BP 142/86; PULSE 88; RESP 16; TEMP 37
[2017-12-13 08:32] VITALS: BP 141/87; PULSE 92; RESP 18; TEMP 36.8; O2SAT 97
[2017-12-13 08:34] VITALS: BP 141/87; PULSE 92; RESP 18; TEMP 36.8
[2017-12-13] MEDS: HYDROCHLOROTHIAZIDE 12.5 MG CAPSULE PO (08:36)
[2017-12-13] MEDS: Pramipexole Di-HCl 0.25 MG Tablet PO (08:36)
[2017-12-13] MEDS: Loperamide 2 MG Capsule PO (08:41)
--- NOTE | 2017-12-13 09:19 | PCM.PN.HOSP ---
Subjective: Still feels like he is withdrawing, some tremors and shakiness in his voice. Objective: General: Alert, No apparent distress HEENT: Atraumatic, Normocephalic Oral: Moist Mucosa Neck: supple, no JVD Lungs: Clear to auscultation, Normal air movement, No rhonchi, No wheeze Cardiovascular: Regular rate, Regular Rhythm, Normal S1, Normal S2, No murmurs Abdomen: Soft, Non Tender, Non-Distended, No Hepato-splenomegaly Skin: No rashes, No breakdown Psych/Mental Status: Normal Affect, Appropriate Vitals/I&O's: Vital Signs Temp Pulse Resp BP Pulse Ox 98.2 F 92 18 141/87 H 97 12/13/17 08:34 12/13/17 08:34 12/13/17 08:34 12/13/17 08:34 12/13/17 08:32 Oxygen Delivery Method Room Air Weight: 284 lb 2.813 oz Body Mass Index (BMI) 37.5 Intake and Output for Last 24 Hours 12/11/17 12/12/17 12/13/17 23:59 23:59 23:59 Intake Total 1080 / 1080 850 / 850 700 / 700 Balance 1080 / 1080 850 / 850 700 / 700 Current Medications Acetaminophen (Tylenol) 500 mg PO Q4H PRN PRN PRN Reason: Temp > 100.4 F Al Hydroxide/Mg Hydroxide (Mylanta Ii) 30 ml PO Q6H PRN PRN PRN Reason: dyspesia Chlordiazepoxide (Librium) 25 mg PO Q8H ETHAN PRN Reason: Taper Stop: 12/14/17 00:44 Last Admin: 12/13/17 08:36 Dose: 25 mg Clonidine (Catapres) 0.1 mg PO Q2H PRN PRN PRN Reason: Hot/Cold Sweats or Anxiety Last Admin: 12/12/17 21:42 Dose: 0.1 mg Dicyclomine HCl (Bentyl) 20 mg PO Q6H PRN PRN PRN Reason: Abdomnial Discomfort Last Admin: 12/13/17 08:41 Dose: 20 mg Hydrochlorothiazide (Hydrochlorothiazide) 12.5 mg PO DAILY [facility] Last Admin: 12/13/17 08:36 Dose: 12.5 mg Hydroxyzine HCl (Vistaril Vial) 50 mg IM Q6H PRN PRN PRN Reason: Breakthrough Anxiety Hydroxyzine Pamoate (Vistaril Pamoate Capsule) 50 mg PO Q6H PRN PRN PRN Reason: Mild Anxiety Last Admin: 12/12/17 21:42 Dose: 50 mg Loperamide HCl (Imodium) 2 - 4 mg PO UD PRN PRN Reason: LOOSE STOOLS Last Admin: 12/13/17 08:41 Dose: 4 mg Methocarbamol (Methocarbamol) 750 mg PO Q6H PRN PRN PRN Reason: Muscle Aches Last Admin: 12/12/17 08:36 Dose: 750 mg Ondansetron HCl (Zofran Odt) 4 mg PO Q6H PRN PRN PRN Reason: NAUSEA Last Admin: 12/12/17 16:25 Dose: 4 mg Pramipexole Dihydrochloride (Mirapex) 0.25 mg PO Q12H PRN PRN PRN Reason: Restless Legs Last Admin: 12/13/17 08:36 Dose: 0.25 mg Senna (Senokot) 1 tablet PO QHS PRN PRN Reason: Constipation Trazodone HCl (Desyrel) 50 mg PO QHS ETHAN Last Admin: 12/12/17 21:42 Dose: 50 mg Medical Necessity - Tobacco Use Smoking Status: Never smoker Assessment/Plan All Active Problems (Last Reviewed 12/11/17 @ 05:36 by Kraig Levy MD) Polysubstance dependence (Acute) Heroin overdose (Acute) 1. Acute opiate withdrawal - 1gm of heroine use daily for the last several years - not on subutex as he has had heroine use within 5 days - c/w libirum - Seen by Dr. Kenney who has been providing him subutex and when he would run out he would start using heroine again - He will need to follow-up with Dr. Kenney as an outpatient DVT: Lovenox Diet: Regular Code Visit Inpatient E&M: 84114 Subs Hosp L2
[2017-12-13] MEDS: Enoxaparin 40 MG/0.4 ML Syringe SC (11:19)
--- NOTE | 2017-12-13 12:53 | CASEMGMT ---
SW called [facility], pt applied for Medicaid Wednesday, can take up to 30 days to process. SW spoke w/pt in room. SW let pt know that when his Medicaid becomes active to make sure to call the hospital to let hospital know Medicaid number, as Medicaid can be billed from when applied. Pt states understanding. SW gave pt resources, including [facility], [facility], prescription assist programs, and dental programs. In regard to substance abuse, pt plans to follow up w/Dr. Kenney. SW also gave pt information on [facility] and encouraged pt to follow up w/them for support. Pt is familiar with the agency but has not worked w/them in the past. SW let pt know they have intake daily and pt can just walk in for intake. Pt states understanding. Pt denies any other needs. SW available should any other needs arise. HONG Lamb, [employer] OPERATOR
[2017-12-13 14:00] VITALS: BP 141/89; PULSE 95; RESP 18; TEMP 36.9
[2017-12-13 14:23] VITALS: BP 141/89; PULSE 95; RESP 18; TEMP 36.9; O2SAT 95
--- NOTE | 2017-12-13 17:14 | PCM.DC.SUM ---
Discharge Date and Diagnosis Date of Admission: 12/10/17 Date of Discharge: 12/13/17 - Primary Discharge Diagnosis Opiate withdrawal - Secondary Discharge Diagnosis HTN Hospital Course and Treatment Imaging Results: None Consults: None Operations: None Procedures: None Summary of Care Provided: HPI: The patient is a 37 year old male w/ h/o HTN, tobacco abuse, and heroin abuse is admitted for heroin withdrawal. He was recently admitted 2 days ago for heroin overdose. At that time her had agonal breathing and was given narcan. When awoke, he did not want to participate in the [facility] program and was discharged. He spoke to Dr. Herrera today and Dr. Herrera would like him to go through the [facility] program so he came back to the ED. He has a long history of heroin abuse. He has been using heroin 4-5 times / day for the past 3 years. He also has been on suboxone for 3 months. He ran out of suboxone and resulted back to snorting heroin. He use the same dose each time he uses. He has been having restless leg and anxiety with mild abdominal pain. Pain is constant and cramping. Nothing made it better or worse. Pain has been ongoing for the past few days. Hospital Course: 1. Acute opiate withdrawal - 1gm of heroine use daily for the last several years - not on subutex as he has had heroine use within 5 days - c/w libirum taper which finished today at 1600 and he has continued to do ok - Seen by Dr. Kenney who has been providing him subutex and when he would run out he would start using heroine again - He will need to follow-up with Dr. Kenney as an outpatient. Home Medications: Medications to take at Discharge Hydrochlorothiazide 12.5 mg PO DAILY #30 cap 12/09/17 Primary Care Physician: Care Physician,No Primary [Primary Care Provider] - Please Follow Up With: Yolanda Kenney MD - 12/15/17 Disposition: Home Minutes spent on discharge:: 35 Patient Condition:: Good Medical Necessity - Tobacco Use Smoking Status: Never smoker Meaningful Use Info Meaningful Use Diagnoses (Choose all that apply): None applicable Code Visit Inpatient E&M: 08724 Disch Hosp
--- NOTE | 2017-12-13 17:20 | DCINST_ITS ---
- Discharge Diagnoses Current Active Problems: Opiate withdrawal You will use the following diet at home:: No restrictions Your food should be the consistency of: Regular Your liquids should be the consistency of: Regular/Thin Discharge Activity: Return to Normal Activity Allergies/Adverse Reactions: Allergies No Known Allergies Allergy (Verified 12/10/17 19:36) Medications to take at Discharge Hydrochlorothiazide 12.5 mg PO DAILY #30 cap 12/09/17 Primary Care Physician: Care Physician,No Primary [Primary Care Provider] - Test Results: Test results from this visit will be discussed in further detail at your follow- up appointment, if applicable. Please Follow Up With: Yolanda Kenney MD - 12/15/2017
== END 2017-12-13 18:05 | disposition home or self-care (01) | DRG 897 ==
LOC: ED 20:01 → MS2 20:55
PROVIDERS: Admitting Provider Internal Medicine; Emergency Provider Emergency Medicine; Visit Provider Family Medicine
DX: F11.23 Opioid dependence with withdrawal (principal); I10 Essential (primary) hypertension
CPT/HCPCS: 36415; 80053; 80307; 81001; 82150; 83690; 84484; 85025; 85610; 87040; 99281

== ENCOUNTER 2018-05-23 16:19 | Observation (INO) | payer MEDICAID, SELFPAY ==
[2018-05-23 16:37] VITALS: PULSE 80; BMI 35.9
[2018-05-23 16:56] VITALS: BMI 35.9
[2018-05-23 17:00] VITALS: BP 132/80; PULSE 81; RESP 16; TEMP 36.6
--- NOTE | 2018-05-23 18:33 | PCM.HP.STD ---
Problem List (1) Polysubstance dependence Status: Acute History of Present Illness Date of Admission: 05/23/18 Chief Complaint: Heroin withdrawal The patient is a 38 year old M with a PMH as below who presents for [facility] opiate withdrawal. He states that his last use was heroin yesterday. He denies any other drug use though he does not know if there is anything in the heroin. Of note he was recently here in December initially for a heroin overdose that necessitated the use of Narcan followed by going through [facility] for withdrawal. Currently he denies any hallucinations or tremors. He does appear a little diaphoretic. Part of his heroin use is in part to being also on Suboxone by pain management, generally when he runs out of the Suboxone he falls back into using heroin for pain relief. Past Medical History Medical History: Medical History (Last Reviewed 12/11/17 @ 05:36 by Kraig Levy MD) Hypertension I10 Allergies No Known Allergies Allergy (Verified 12/10/17 19:36) Home Medications: Ambulatory Orders Medication Instructions Recorded Atenolol 50 mg PO DAILY 05/23/18 Hydrochlorothiazide 50 mg PO DAILY PRN PRN 05/23/18 Lisinopril 20 mg PO DAILY 05/23/18 Magnesium Oxide [Mag-Ox 400] 400 mg PO BID 05/23/18 Surgical History: arthroscopy, knee - Right, - - To placing right arm. Smoking Status: Never smoker Tobacco Use: Chew - *Family History Maternal History Items: Cancer Paternal History Items: Cancer, Heart Disease Review of Systems Constitutional: Denies: Chills, Fever, Weight Change HEENT: Denies: Head Aches, Sinus Congestion, Sinus Drainage Cardiovascular: Denies: Chest Pain, Palpitations Respiratory: Denies: Cough, Shortness of breath at rest, Sputum production Gastrointestinal: Denies: Abdominal Pain, Nausea, Vomiting Genitourinary: Denies: Dysuria Musculoskeletal: Denies: Joint Pain, Joint Tenderness Skin: Reports: - - Sweating. Denies: Rash, Wounds Neurological: Denies: Numbness, Tingling, Focal weakness Psychiatric: Denies: Anxiety, Depression Hematologic/ Lymphatic: Denies: Easy Bruising, Easy Bleeding VTE Information - Inpt Only VTE Present on Admission: No - Physical Exam General: Alert, Oriented x3, Cooperative, No apparent distress, - - Diaphoretic HEENT: Atraumatic, PERRLA, EOMI, Normocephalic Oral: Dry Mucosa Neck: Supple, No JVD, Trachea Midline Lungs: Clear to auscultation, Normal air movement, No rhonchi, No wheeze, No rales Cardiovascular: Regular rate, Regular Rhythm, Normal S1, Normal S2, No murmurs Abdomen: Soft, Non Tender, Non-Distended, No Hepato-splenomegaly Extremities: No edema, Capillary Refill Less than 3 Seconds Skin: No rashes, No breakdown Neurological: Neuro grossly intact, Sensory exam intact to light touch and pain Psych/Mental Status: Normal Affect, Appropriate Weight: 272 lb Body Mass Index (BMI) 35.9 Assessment/Plan All Active Problems (Last Reviewed 12/11/17 @ 05:36 by Kraig Levy MD) Polysubstance dependence (Acute) Heroin overdose (Acute) 1. Heroin withdrawal -We will enter into the [facility] protocol -He will need to follow-up as an outpatient rehab -Currently withdrawal seems to be fairly mild 2. Hypertension -Currently stable -Continue with his home medications DVT: Ambulation Code Visit Inpatient E&M: 65961 Init Hosp L2
[2018-05-23] MEDS: Pramipexole Di-HCl 0.25 MG Tablet PO (18:42)
[2018-05-23] MEDS: Dicyclomine 10 MG Capsule 20 MG PO (18:42)
[2018-05-23] MEDS: cloNIDine HCl 0.1 MG Tablet PO ×2 (18:42→21:14)
[2018-05-23] MEDS: Buprenorphine HCl 2 MG TAB.SUBL SL (18:46)
[2018-05-23] MEDS: Methocarbamol 750 MG Tablet PO (20:09)
[2018-05-23] MEDS: hydrOXYzine PAM 25 MG Capsule 50 MG PO (21:14)
[2018-05-23 22:00] VITALS: BP 142/83; PULSE 78; RESP 16; TEMP 36.9
[2018-05-24] VITALS (10 sets, daily range): BP systolic 134–159; BP diastolic 83–98; PULSE 71–86; RESP 16–18; TEMP 36.7–36.8; O2SAT 95–98
[2018-05-24] MEDS: Buprenorphine HCl 2 MG TAB.SUBL SL ×3 (04:56→20:10)
[2018-05-24] MEDS: Atenolol 25 MG Tablet 50 MG PO (08:23)
[2018-05-24] MEDS: Lisinopril 20 MG Tablet PO (08:24)
[2018-05-24] MEDS: cloNIDine HCl 0.1 MG Tablet PO ×3 (08:28→21:22)
[2018-05-24] MEDS: Dicyclomine 10 MG Capsule 20 MG PO ×2 (08:28→17:44)
[2018-05-24] MEDS: Methocarbamol 750 MG Tablet PO ×2 (08:28→21:22)
[2018-05-24] MEDS: hydrOXYzine PAM 25 MG Capsule 50 MG PO ×2 (08:28→17:44)
--- NOTE | 2018-05-24 09:20 | PN_ITS ---
Subjective: Patient was seen and examined. He complains of generalized aches, restless leg, nausea, hot and cold flashes. Denied any diarrhea or abdominal discomfort. Vital signs stable except for elevated blood pressure Vitals/I&O's: Vital Signs Temp Pulse Resp BP Pulse Ox 98.3 F 86 18 159/83 H 96 05/24/18 08:31 05/24/18 08:31 05/24/18 08:31 05/24/18 08:31 05/24/18 08:31 Oxygen Delivery Method Room Air Weight: 123.377 kg Body Mass Index (BMI) 35.9 Intake and Output for Last 24 Hours 05/22/18 05/23/18 05/24/18 23:59 23:59 23:59 Intake Total 300 / 300 1000 / 1000 Balance 300 / 300 1000 / 1000 General: Alert, Oriented x3, Cooperative, - - Appears restless, obese HEENT: Atraumatic, PERRLA, EOMI, Normocephalic Oral: Moist Mucosa Neck: Supple, No JVD, Negative Carotid Bruits Lungs: Clear to auscultation, Normal air movement Cardiovascular: Regular rate, Regular Rhythm, Normal S1, Normal S2, No murmurs Abdomen: Bowel Sounds Present, Soft, Non Tender, Non-Distended, No Hepato- splenomegaly Extremities: No edema Skin: No rashes Musculoskeletal: No Tenderness to Palpation of Joints or Extremities Lymphatic: No Cervical, Supraclavicular, or Inguinal Adenopathy Neurological: Cranial nerves II-XII grossly intact, Neuro grossly intact Psych/Mental Status: Normal Affect, Appropriate Current Medications Atenolol (Tenormin (Beta Robbie)) 50 mg PO DAILY [facility] Last Admin: 05/24/18 08:23 Dose: 50 mg Buprenorphine HCl (Buprenorphine Hcl) 4 mg SL Q8H ETHAN; Taper Stop: 05/26/18 23:59 Last Admin: 05/24/18 04:56 Dose: 4 mg Clonidine (Catapres) 0.1 mg PO Q2H PRN PRN PRN Reason: Hot/Cold Sweats or Anxiety Last Admin: 05/24/18 08:28 Dose: 0.1 mg Dicyclomine HCl (Bentyl) 20 mg PO Q6H PRN PRN PRN Reason: Abdomnial Discomfort Last Admin: 05/24/18 08:28 Dose: 20 mg Hydrochlorothiazide (Hctz) 50 mg PO DAILY PRN PRN PRN Reason: Swelling Hydroxyzine HCl (Vistaril Vial) 50 mg IM Q6H PRN PRN PRN Reason: Breakthrough Anxiety Hydroxyzine Pamoate (Vistaril Pamoate Capsule) 50 mg PO Q6H PRN PRN PRN Reason: Mild Anxiety Last Admin: 05/24/18 08:28 Dose: 50 mg Lisinopril (Zestril) 20 mg PO DAILY [facility] Last Admin: 05/24/18 08:24 Dose: 20 mg Magnesium Hydroxide (Milk Of Magnesia) 30 ml PO DAILY PRN PRN PRN Reason: Constipation Methocarbamol (Methocarbamol) 750 mg PO Q6H PRN PRN PRN Reason: Muscle Aches Last Admin: 05/24/18 08:28 Dose: 750 mg Pramipexole Dihydrochloride (Mirapex) 0.25 mg PO Q12H PRN PRN PRN Reason: Restless Legs Last Admin: 05/23/18 18:42 Dose: 0.25 mg Medical Necessity - Tobacco Use Smoking Status: Never smoker Tobacco Use: Chew Assessment/Plan All Active Problems (Last Reviewed 12/11/17 @ 05:36 by Kraig Levy MD) Polysubstance dependence (Acute) Heroin overdose (Acute) 38-year-old male with history of heroin use disorder comes in for medical stabilization in the [facility] protocol. 1. Acute opiate withdrawal, appears stable, will continue with a [facility] protocol 2. Hypertension, uncontrolled, likely secondary also to withdrawal, on atenolol, hydrochlorothiazide, lisinopril will continue to monitor 3. DVT PPx- early ambulation Code Visit Inpatient E&M: 01341 Subs Hosp L2
--- NOTE | 2018-05-24 13:31 | NURSING ---
PT RESTING QUIETLY IN BED, EYES CLOSED, RESP EASY
--- NOTE | 2018-05-24 16:58 | [facility] ---
Patient's discharge plan: Patient is scheduled to attend a counseling appointment with his current AOD counselor at [facility] on 05/31/18 at 3pm.
[2018-05-24] MEDS: Pramipexole Di-HCl 0.25 MG Tablet PO (17:44)
--- NOTE | 2018-05-24 19:00 | NURSING ---
PT RESTING QUIETLY IN BED WITH EYES CLOSED, RESP EASY
[2018-05-25] VITALS (8 sets, daily range): BP systolic 121–161; BP diastolic 73–81; PULSE 62–71; RESP 16–18; TEMP 36.3–36.9; O2SAT 95–100
[2018-05-25] MEDS: cloNIDine HCl 0.1 MG Tablet PO ×4 (04:09→18:21)
[2018-05-25] MEDS: Dicyclomine 10 MG Capsule 20 MG PO ×3 (04:09→18:21)
[2018-05-25] MEDS: Methocarbamol 750 MG Tablet PO ×2 (04:09→14:56)
[2018-05-25] MEDS: Buprenorphine HCl 2 MG TAB.SUBL SL ×2 (04:09→12:20)
[2018-05-25] MEDS: hydrOXYzine PAM 25 MG Capsule 50 MG PO ×3 (04:11→18:20)
--- NOTE | 2018-05-25 09:18 | NURSING ---
PT RESTING QUIETLY IN BED WITH EYES CLOSED, RESP EASY
--- NOTE | 2018-05-25 09:24 | PCM.PN.HOSP ---
Subjective: Patient was seen and examined. He complains of generalized aches with nausea and hot and cold flushes Vitals/I&O's: Vital Signs Temp Pulse Resp BP Pulse Ox 98.2 F 68 18 128/81 H 98 05/25/18 08:09 05/25/18 08:09 05/25/18 08:09 05/25/18 08:09 05/25/18 08:09 Oxygen Delivery Method Room Air Weight: 123.377 kg Body Mass Index (BMI) 35.9 Intake and Output for Last 24 Hours 05/23/18 05/24/18 05/25/18 23:59 23:59 23:59 Intake Total 300 / 300 1999 / 1999 250 / 250 Balance 300 / 300 1999 / 1999 250 / 250 General: Alert, Oriented x3, Cooperative, No apparent distress HEENT: Atraumatic, PERRLA, EOMI, Normocephalic Oral: Moist Mucosa Neck: Supple, No JVD, Negative Carotid Bruits Lungs: Clear to auscultation, Normal air movement Cardiovascular: Regular rate, Regular Rhythm, Normal S1, Normal S2, No murmurs Abdomen: Bowel Sounds Present, Soft, Non Tender Extremities: No edema Skin: No rashes, No breakdown Musculoskeletal: No Tenderness to Palpation of Joints or Extremities Lymphatic: No Cervical, Supraclavicular, or Inguinal Adenopathy Neurological: Cranial nerves II-XII grossly intact Psych/Mental Status: Appropriate, Flat Affect Current Medications Atenolol (Tenormin (Beta Robbie)) 50 mg PO DAILY ETHAN Last Admin: 05/24/18 08:23 Dose: 50 mg Buprenorphine HCl (Buprenorphine Hcl) 2 mg SL Q8H ETHAN; Taper Stop: 05/26/18 23:59 Last Admin: 05/25/18 04:09 Dose: 2 mg Clonidine (Catapres) 0.1 mg PO Q2H PRN PRN PRN Reason: Hot/Cold Sweats or Anxiety Last Admin: 05/25/18 04:09 Dose: 0.1 mg Dicyclomine HCl (Bentyl) 20 mg PO Q6H PRN PRN PRN Reason: Abdomnial Discomfort Last Admin: 05/25/18 04:09 Dose: 20 mg Hydrochlorothiazide (Hctz) 50 mg PO DAILY PRN PRN PRN Reason: Swelling Hydroxyzine HCl (Vistaril Vial) 50 mg IM Q6H PRN PRN PRN Reason: Breakthrough Anxiety Hydroxyzine Pamoate (Vistaril Pamoate Capsule) 50 mg PO Q6H PRN PRN PRN Reason: Mild Anxiety Last Admin: 05/25/18 04:11 Dose: 50 mg Lisinopril (Zestril) 20 mg PO DAILY ETHAN Last Admin: 05/24/18 08:24 Dose: 20 mg Magnesium Hydroxide (Milk Of Magnesia) 30 ml PO DAILY PRN PRN PRN Reason: Constipation Methocarbamol (Methocarbamol) 750 mg PO Q6H PRN PRN PRN Reason: Muscle Aches Last Admin: 05/25/18 04:09 Dose: 750 mg Pramipexole Dihydrochloride (Mirapex) 0.25 mg PO Q12H PRN PRN PRN Reason: Restless Legs Last Admin: 05/24/18 17:44 Dose: 0.25 mg Medical Necessity - Tobacco Use Smoking Status: Never smoker Tobacco Use: Chew Assessment/Plan All Active Problems (Last Reviewed 12/11/17 @ 05:36 by Kraig Levy MD) Polysubstance dependence (Acute) Heroin overdose (Acute) 38-year-old male with history of heroin use disorder comes in for medical stabilization under the [facility] protocol. 1.Acute opiate withdrawal, improved, last CIWA score was 1, will continue on [facility] protocol 2. Hypertension, fluctuating, controlled for the most part, on atenolol, hydrochlorothiazide, and lisinopril will continue to monitor 3. DVT PPx- early ambulation Code Visit Inpatient E&M: 67871 Subs Hosp L2
[2018-05-25] MEDS: Lisinopril 20 MG Tablet PO (09:43)
[2018-05-25] MEDS: Atenolol 25 MG Tablet 50 MG PO (09:43)
[2018-05-26 00:30] VITALS: BP 137/85; PULSE 65; RESP 16; TEMP 36.9
[2018-05-26] MEDS: Methocarbamol 750 MG Tablet PO ×2 (00:33→10:51)
[2018-05-26] MEDS: Dicyclomine 10 MG Capsule 20 MG PO (00:33)
[2018-05-26] MEDS: Buprenorphine HCl 2 MG TAB.SUBL SL ×2 (00:33→10:59)
[2018-05-26] MEDS: cloNIDine HCl 0.1 MG Tablet PO ×2 (00:33→10:51)
--- NOTE | 2018-05-26 08:38 | PCM.PN.HOSP ---
Vitals/I&O's: Vital Signs Temp Pulse Resp BP Pulse Ox 98.4 F 65 16 137/85 H 95 05/26/18 00:30 05/26/18 00:30 05/26/18 00:30 05/26/18 00:30 05/25/18 18:00 Oxygen Delivery Method Room Air Weight: 123.377 kg Body Mass Index (BMI) 35.9 Intake and Output for Last 24 Hours 05/24/18 05/25/18 05/26/18 23:59 23:59 23:59 Intake Total 1999 650 / 650 Balance 1999 650 / 650 Current Medications Atenolol (Tenormin (Beta Robbie)) 50 mg PO DAILY ETHAN Last Admin: 05/25/18 09:43 Dose: 50 mg Buprenorphine HCl (Buprenorphine Hcl) 2 mg SL Q12H ETHAN; Taper Stop: 05/26/18 23:59 Last Admin: 05/26/18 00:33 Dose: 2 mg Clonidine (Catapres) 0.1 mg PO Q2H PRN PRN PRN Reason: Hot/Cold Sweats or Anxiety Last Admin: 05/26/18 00:33 Dose: 0.1 mg Dicyclomine HCl (Bentyl) 20 mg PO Q6H PRN PRN PRN Reason: Abdomnial Discomfort Last Admin: 05/26/18 00:33 Dose: 20 mg Hydrochlorothiazide (Hctz) 50 mg PO DAILY PRN PRN PRN Reason: Swelling Hydroxyzine HCl (Vistaril Vial) 50 mg IM Q6H PRN PRN PRN Reason: Breakthrough Anxiety Hydroxyzine Pamoate (Vistaril Pamoate Capsule) 50 mg PO Q6H PRN PRN PRN Reason: Mild Anxiety Last Admin: 05/25/18 18:20 Dose: 50 mg Lisinopril (Zestril) 20 mg PO DAILY ETHAN Last Admin: 05/25/18 09:43 Dose: 20 mg Magnesium Hydroxide (Milk Of Magnesia) 30 ml PO DAILY PRN PRN PRN Reason: Constipation Methocarbamol (Methocarbamol) 750 mg PO Q6H PRN PRN PRN Reason: Muscle Aches Last Admin: 05/26/18 00:33 Dose: 750 mg Pramipexole Dihydrochloride (Mirapex) 0.25 mg PO Q12H PRN PRN PRN Reason: Restless Legs Last Admin: 05/24/18 17:44 Dose: 0.25 mg Medical Necessity - Tobacco Use Smoking Status: Never smoker Tobacco Use: Chew Assessment/Plan All Active Problems (Last Reviewed 12/11/17 @ 05:36 by Kraig Levy MD) Polysubstance dependence (Acute) Heroin overdose (Acute)
--- NOTE | 2018-05-26 09:25 | DCINST_ITS ---
- Discharge Diagnoses Reason(s) for Visit for Discharge Instructions: Acute opiate withdrawal You will use the following diet at home:: Cardiac Your food should be the consistency of: Regular Your liquids should be the consistency of: Regular/Thin Discharge Activity: Return to Normal Activity Additional Instructions: Follow-up with your outpatient program at the [facility] as planned. You are advised to stop using illicit drugs. Follow-up with your PCP within 1-2 weeks Allergies/Adverse Reactions: Allergies No Known Allergies Allergy (Verified 12/10/17 19:36) Medications to take at Discharge Atenolol 50 mg PO DAILY 05/23/18 Hydrochlorothiazide 50 mg PO DAILY PRN PRN 05/23/18 Lisinopril 20 mg PO DAILY 05/23/18 Magnesium Oxide [Mag-Ox 400] 400 mg PO BID 05/23/18 Primary Care Physician: Care Physician,No Primary [Primary Care Provider] - Please follow up with your Primary Care Physician in: within 1-2 weeks Test Results: Test results from this visit will be discussed in further detail at your follow- up appointment, if applicable. Proposed Discharge Date: 05/26/18
--- NOTE | 2018-05-26 09:25 | PCM.DC.SUM ---
Discharge Date and Diagnosis Date of Admission: 05/23/18 Date of Discharge: 05/26/18 - Primary Discharge Diagnosis Acute opiate withdrawal Uncontrolled hypertension - Secondary Discharge Diagnosis Hypertension Hospital Course and Treatment None Operations: None Procedures: None Summary of Care Provided: 38-year-old male with history of heroin use disorder comes in for medical stabilization under the [facility] protocol. Management was as follows: 1.Acute opiate withdrawal, improved with a [facility] protocol. He was discharged to follow-up with his outpatient counseling center program. 2. Hypertension, blood pressure was initially uncontrolled, improved on his home atenolol, hydrochlorothiazide, and lisinopril. Subjective: On the day of discharge, patient denied any new complaints, feels improved. Objective: Physical exam: General: Alert, Oriented x3, Cooperative, No apparent distress HEENT: Atraumatic, PERRLA, EOMI, Normocephalic Oral: Moist Mucosa Neck: Supple, No JVD, Negative Carotid Bruits Lungs: Clear to auscultation, Normal air movement Cardiovascular: Regular rate, Regular Rhythm, Normal S1, Normal S2, No murmurs Abdomen: Bowel Sounds Present, Soft, Non Tender Extremities: No edema Skin: No rashes, No breakdown Musculoskeletal: No Tenderness to Palpation of Joints or Extremities Lymphatic: No Cervical, Supraclavicular, or Inguinal Adenopathy Neurological: Cranial nerves II-XII grossly intact Psych/Mental Status: Appropriate, Flat Affect - Physical Exam Vital Signs Temp Pulse Resp BP Pulse Ox 98.4 F 65 16 137/85 H 95 05/26/18 00:30 05/26/18 00:30 05/26/18 00:30 05/26/18 00:30 05/25/18 18:00 Oxygen Delivery Method Room Air Weight: 123.377 kg Body Mass Index (BMI) 35.9 Intake and Output for Last 24 Hours 05/24/18 05/25/18 05/26/18 23:59 23:59 23:59 Intake Total 1999 650 / 650 Balance 1999 650 / 650 Discharge Diet: Low fat/ Low Cholesterol, 2000 mg Sodium Diet Discharge Activity: Return to Normal Activity Home Medications: Medications to take at Discharge Atenolol 50 mg PO DAILY 05/23/18 Hydrochlorothiazide 50 mg PO DAILY PRN PRN 05/23/18 Lisinopril 20 mg PO DAILY 05/23/18 Magnesium Oxide [Mag-Ox 400] 400 mg PO BID 05/23/18 Primary Care Physician: Care Physician,No Primary [Primary Care Provider] - Please follow up with your Primary Care Physician in: within 1-2 weeks Disposition: Home Minutes spent on discharge:: 25 Patient Condition:: Stable Medical Necessity - Tobacco Use Smoking Status: Never smoker Tobacco Use: Chew Meaningful Use Info Meaningful Use Diagnoses (Choose all that apply): None applicable Code Visit Inpatient E&M: 92108 Disch Hosp
[2018-05-26 10:00] VITALS: BP 139/92; PULSE 65; RESP 14; TEMP 36.6
[2018-05-26] MEDS: Atenolol 25 MG Tablet 50 MG PO (10:51)
[2018-05-26] MEDS: hydrOXYzine PAM 25 MG Capsule 50 MG PO (10:51)
[2018-05-26] MEDS: Lisinopril 20 MG Tablet PO (10:51)
== END 2018-05-26 11:15 | disposition home or self-care (01) | DRG 773 ==
PROVIDERS: Admitting Provider Family Medicine; Referring Provider Family Medicine; Visit Provider Internal Medicine
DX: F11.23 Opioid dependence with withdrawal (principal); I10 Essential (primary) hypertension; Z72.0 Tobacco use; Z79.899 Other long term (current) drug therapy; F17.220 Nicotine dependence, chewing tobacco, uncomplicated
CPT/HCPCS: 99218; G0378; G0379

== ENCOUNTER → 2018-05-30 09:22 | Outpatient (CLI) | payer MEDICAID, SELFPAY ==
[2018-05-23 16:37] VITALS: BMI 35.9
[2018-05-30 09:56] LABS: Amphetamine Urine VISTA NEGATIVE (<1000 ng/mL); Barbiturate Urine VISTA NEGATIVE (< 200 ng/mL); Benzodiazepine Urine VISTA NEGATIVE (< 200 ng/mL); Cocaine Urine VISTA NEGATIVE (< 300 ng/mL); Ecstacy Urine VISTA NEGATIVE (< 500 ng/mL); Methadone Urine VISTA NEGATIVE (< 300 ng/mL); PCP Urine VISTA NEGATIVE (< 25 ng/mL); THC Urine VISTA NEGATIVE (< 50 ng/mL); Vista UDS pH Range 5
[2018-05-30 10:13] LABS: Microalbumin,Random Urine 51.3 mg/L (NO RANGE EST.); Microalbumin:Creatinine Ratio 12.2 mg/g CRE (<30 mg/g CRE)
[2018-05-30 11:34] LABS: ALB/GLOB Ratio 0.9 RATIO (0.9-2.4); AST(SGOT) 15 U/L (15-37); Alanine Aminotransfer ALT/SGPT 23 U/L (16-61); Alkaline Phosphatase 99 U/L (45-117); Anion Gap 10 (5-15); BUN 20 mg/dL (7-18); BUN/Creat Ratio 15.2 RATIO (10-20); Calcium,Total 9.3 mg/dL (8.5-10.1); Chloride 99 mmol/L (98-107); Creatinine, Serum 1.32 mg/dL (0.70-1.30); EST Glomerular Filtration Rate 65 mL/min (>60); Est Glom Filt Rate - Afr Amer 78 mL/min (>60); Globulin 4.6 g/dL (2.2-4.2); Glucose 92 mg/dL (74-106); Potassium 3.8 mmol/L (3.5-5.1); Protein, Total 8.6 g/dL (6.4-8.2); Sodium Level 135 mmol/L (136-145); Thyroid Stim Hormone (TSH) 1.97 uIU/mL (0.358-3.74)
== END ==
PROVIDERS: Family Provider Family Medicine; PCP Family Medicine; Referring Provider Anesthesiology Pain Medicine; Visit Provider Anesthesiology Pain Medicine
DX: I10 Essential (primary) hypertension (principal); F11.20 Opioid dependence, uncomplicated
CPT/HCPCS: 36415; 80053; 80307; 82043; 82570; 84443

== ENCOUNTER → 2018-10-24 | Outpatient (CLI) | payer MEDICAID, SELFPAY ==
[2018-09-28 14:24] VITALS: BMI 36.1
== END | disposition home or self-care (01) ==
PROVIDERS: Family Provider Family Medicine; PCP Family Medicine; Referring Provider Internal Medicine Critical Care Medicine; Visit Provider Internal Medicine Critical Care Medicine
DX: G47.33 Obstructive sleep apnea (adult) (pediatric) (principal)
CPT/HCPCS: 95811

== ENCOUNTER 2019-07-13 01:35 | Inpatient (IN) | payer MEDICAID, SELFPAY ==
[2018-09-28 14:24] VITALS: BMI 36.1
[2019-07-13] VITALS (8 sets, daily range): BP systolic 134–168; BP diastolic 87–110; PULSE 71–94; RESP 16–18; TEMP 36.6–37.1; O2SAT 93–98; BMI 37.2; BMI 35.6
--- NOTE | 2019-07-13 01:59 | PCM.HP.STD ---
Problem List (1) Acute opioid withdrawal Status: Acute (2) Heroin use Status: Acute (3) HTN (hypertension) Status: Chronic Qualifiers: Hypertension type: essential hypertension Qualified Code(s): I10 - Essential (primary) hypertension (4) Obesity (BMI 30-39.9) Status: Chronic (5) CALIN (obstructive sleep apnea) Status: Suspected (6) Polysubstance dependence Status: Chronic History of Present Illness Date of Admission: 07/13/19 Chief Complaint: Acute opiate withdrawal The patient is a 39 y/o M w/ PMHx: HTN, CALIN, Obesity, Opiate Abuse who presents to the [facility] at [facility] ED on 07/13/19 w/ noted opiate withdrawal onset starting late the evening prior following last dose 24 hours prior noting he snorts heroin ~ 5-10x daily with abdominal pain/cramping, generalized body aches and pains, rhinorrhea, piloerection, fatigue, restless leg, sweating, yawning. Patient interested in attaining clean status. Patient had been hospitalized x 2 in 2018 for acute opiate withdrawal with attempts for clean status. He notes that following the last time he had been clean for approximately 5 months. He is currently living with his girlfriend who he notes has a substance abuse problem as well but is been clean x1 week. Work-up in the ED included T 98.7, heart rate 90, BP 168/109, respiratory rate 18, 94% on room air, CBC unremarkable, pending CMP, pending ethyl alcohol level, pending urine drug screen. In the ED patient ministered Zofran 4 mg IV x1. Past Medical History Past Medical History (Chronic Problems): Chronic Problems (Last Reviewed 09/28/18 @ 14:26 by Amirah Manrique) HTN (hypertension) (Chronic) Obesity (BMI 30-39.9) (Chronic) Polysubstance dependence (Chronic) Medical History: Medical History (Last Reviewed 09/28/18 @ 14:26 by Amirah Manrique) Hypertension I10 PVD (peripheral vascular disease) I73.9 Sleep apnea G47.30 Allergies No Known Allergies Allergy (Verified 07/13/19 01:42) Home Medications: Ambulatory Orders Medication Instructions Recorded Hydrochlorothiazide 50 mg PO DAILY PRN PRN 05/23/18 Magnesium Oxide [Mag-Ox 400] 400 mg PO BID 05/23/18 Surgical History: arthroscopy, knee - Right, - - Right upper extremity surgery with hardware. Psychiatric History: No pertinent psych hx Lives: Spouse/ Significant Other Smoking Status: Never smoker Tobacco Use: Non-smoker Alcohol: Occasional Drugs: Heroin - Notes he snorts it 5-10 times per day. - *Family History Maternal Family History: Family History (Last Reviewed 09/28/18 @ 14:26 by Amirah Manrique) Other Acromioclavicular joint arthritis CVA (cerebral vascular accident) Cancer Heart disease Hypertension History Items: Cancer, High Cholesterol, Heart Disease, Hypertension Paternal Family History: Family History (Last Reviewed 09/28/18 @ 14:26 by Amirah Manrique) Other Acromioclavicular joint arthritis CVA (cerebral vascular accident) Cancer Heart disease Hypertension History Items: Cancer, High Cholesterol, Heart Disease, Hypertension Review of Systems Constitutional: Reports: Anorexia, Malaise, Weakness, Fatigue. Denies: Chills, Fever, Weight Change HEENT: Denies: Head Aches, Sinus Congestion, Sinus Drainage Cardiovascular: Denies: Chest Pain, Palpitations Respiratory: Denies: Cough, Shortness of breath at rest, Sputum production Gastrointestinal: Reports: Abdominal Pain, Diarrhea, Nausea. Denies: Vomiting Genitourinary: Denies: Dysuria Musculoskeletal: Reports: Back Pain, Joint Pain. Denies: Joint Tenderness Skin: Reports: Skin Changes. Denies: Rash, Wounds Neurological: Reports: - - RLS.. Denies: Focal weakness, Numbness, Tingling Psychiatric: Denies: Anxiety, Depression, Homicidal Ideations, Suicidal Ideations Hematologic/ Lymphatic: Denies: Easy Bruising, Easy Bleeding VTE Information - Inpt Only VTE Present on Admission: No VTE Mechan Device Prophylaxis: None VTE Pharm Prophylaxis ordered?: No Reason prophylaxis not ordered:: Treatment Not Indicated Patient Problems: Active and Suspected Problems (Last Reviewed 09/28/18 @ 14:26 by Amirah Manrique) Acute opioid withdrawal (Acute) Heroin use (Acute) Subjective: Patient seated upright in ED bed, mildly anxious, fatigued appearance, significantly restless legs present. Objective: Physical Examination: General: awake, alert, oriented x 3 and cooperative, seated upright in the ED bed, mildly anxious, evident restless legs. Skin: normal color, turgor, no icterus, cyanosis except occasional abrasion, picks region. HEENT: AT/NC, EOMI, PERRLA, dry MM, yawning, mild rhinorrhea evident, no carotid bruits or JVD noted. Lungs: CTA bilaterally, moderate effort, moderate decrease BL bases, no rales, ronchi or wheezing. Heart: Mildly tachycardic with regular rhythm; no gallop, rub audible. Abdomen: soft, obese, NTTP, ND, normal BS, no HSM. Extremities: no cyanosis, clubbing, or edema. Neurological: patient awake, alert, oriented x 3; cognitive function suspect near baseline intact; pupils equally reactive to light and accomodation; cranial nerves II-XII grossly normal, moving all 4 extremities, no focal deficits, strength mildly to moderately global decrease secondary to acute presentation, significant restless legs present. Psychiatric: affect appears mildly anxious, fatigued appearance, no acute evidence of depressive or anxiety feelings. - Physical Exam Vitals/I&O's: Vital Signs Temp Pulse Resp BP Pulse Ox 98.7 F 90 18 168/109 H 94 07/13/19 01:37 07/13/19 01:37 07/13/19 01:37 07/13/19 01:37 07/13/19 01:37 Oxygen Delivery Method Room Air Weight: 282 lb 3.067 oz Body Mass Index (BMI) 37.2 Assessment/Plan All Active Problems (Last Reviewed 09/28/18 @ 14:26 by Amirah Manrique) Acute opioid withdrawal (Acute) Heroin use (Acute) Heroin overdose (Acute) The patient is a 39 y/o M w/ PMHx: HTN, CALIN, Obesity, Opiate Abuse who presents to the [facility] at [facility] ED on 07/13/19 w/ noted opiate withdrawal onset starting late the evening prior following last dose 24 hours prior noting he snorts heroin ~ 5-10x/day. 1. Acute Opiate Withdrawal: Will admit to [facility], pending ED CMP, EtOH level and UDS, unremarkable CBC, will initiate tapering course of Subutex, PRN Sinemet, Catapres, Bentyl, Vistaril, Trazodone, IV fluids, IV antiemetics, Tylenol as needed for pain. Will consult case management for assistance for transition to next level of rehabilitation care. Discussed with patient that in order for him to be successful his environment including his home would need to be supportive and this may be complicated given that his girlfriend is also a substance abuser now only clean x1 week. 2. Concern for Polysubstance Abuse: Denies IVDA, notes snorting heroin only; however, to be cautious will obtain HIV, hepatitis panel, UDS pending. 3. Hypertension: Continue home regimen including HCTZ, PRN hydralazine. 4. CALIN: Declined usage of CPAP, noncompliant. 5. Obesity: Weight loss and lifestyle changes encouraged. 6. DVT Prophylaxis: Low risk, encourage ambulation. Inpatient E&M: 50929 Init Hosp L3
[2019-07-13 02:04] LABS: Absolute Lymphocyte Count 2.46 X10^3/uL (0.83-4.51); Absolute Neutrophil Count 3.8 X10^3/uL (2.0-7.7); Basophil# 0.02 X10^3/uL; Basophil% 0.3 % (0-1); Eosinophil# 0.34 X10^3/uL; Eosinophils% 4.7 % (0-5); Hematocrit 44.9 % (40-54); Hemoglobin 14.9 g/dL (13.0-16.5); Lymphocyte # 2.46 X10^3/ul (4.0); Lymphocyte % 33.7 % (19-41); Mean Corp Hgb Conc 33.2 g/dL (32-36); Mean Corpuscular Volume 87.4 fL (80-94); Mean Platelet Vol. 9.2 fl (6.2-12.0); Monocyte# 0.63 X10^3/uL; Monocyte% 8.6 % (0-10); NRBC Flagged by Analyzer 0 % (0-5); Neutrophil # 3.82 X10^3/uL (2.7-7.7); Neutrophil % 52.4 % (47-70); Platelet Count 380 K/mm3 (150-450); RBC Distribution Width SD 40.9 fl (35.1-43.9); Red Blood Count 5.14 M/mm3 (4.6-6.2); White Blood Count 7.3 K/mm3 (4.4-11.0)
[2019-07-13] MEDS: Ondansetron 4 MG/2 ML Vial IV (02:10)
--- NOTE | 2019-07-13 02:12 | ED.DCSUM_ITS ---
- ER Visit Summary Date of Service: 07/13/19 Chief Complaint: Heroin withdrawal History of Present Illness: The patient is a [address] Antolin Larios. He reports he has been using heroin for the last 7 to 8 years. He reports that he went through detox 2 years ago and was clean for approximately 4 months. He has been using since then. He denies any IV drug abuse. States that he snorts heroin 5-10 times per day. His last use was approximately 24 hours ago. Patient complains of chills and sweats. He has abdominal cramping and nausea without vomiting. Has had very little diarrhea. He has diffuse myalgias and a headache that is 3 out of 10 in severity. Physical Examination: Vitals: Stable. Afebrile. General: Well-nourished and well-developed. Head: Normocephalic atraumatic. Neck: Supple, no lymphadenopathy. No JVD. Nontender. Cardiovascular: Regular rate and rhythm. No murmurs. Respiratory: No respiratory distress. Clear to auscultation bilaterally. Abdominal: Soft, nontender, nondistended, normal bowel sounds. No guarding, rebound, or peritoneal signs. Back: Nontender. Extremities: Nontender, no edema. Skin: Normal color, no rash. Neurologic: Alert and oriented ?3. Cranial nerves II through XII are intact. Normal strength and sensation. Psych: Normal affect. Test Results: CBC is normal. CMP and urine drug screen are pending. Emergency Department Course and Treatment: Patient was given a dose of Zofran IV. His CINA score is 11. Treatment Plan: The patient was discussed with Dr. Duran. He will be admitted to the hospital for further evaluation and treatment. Disposition: Admitted in stable condition. Impression: 1. Opiate withdrawal. This note was generated with [employer] software. It may contain incorrect words, spelling, and punctuation that were not noted in review of the chart prior to signing ED Disposition - Plan for ED Patient: Referrals: Antolin Larios MD [Primary Care Provider] -
[2019-07-13 02:16] LABS: Alcohol, Blood (Medical)-Serum < 3.0 mg/dL
[2019-07-13 02:20] LABS: ALB/GLOB Ratio 0.9 RATIO (0.9-2.4); AST(SGOT) 26 U/L (15-37); Alanine Aminotransfer ALT/SGPT 36 U/L (16-61); Albumin, Serum 3.8 g/dL (3.2-5.0); Alkaline Phosphatase 92 U/L (45-117); Anion Gap 2 (5-15); BUN 14 mg/dL (7-18); BUN/Creat Ratio 14.1 RATIO (10-20); Calcium,Total 9.4 mg/dL (8.5-10.1); Chloride 104 mmol/L (98-107); Creatinine, Serum 0.99 mg/dL (0.70-1.30); EST Glomerular Filtration Rate 89 mL/min (>60); Est Glom Filt Rate - Afr Amer 108 mL/min (>60); Estimated Creatinine Clearance 113.21 ml/min; Globulin 4.2 g/dL (2.2-4.2); Glucose 103 mg/dL (74-106); Potassium 3.8 mmol/L (3.5-5.1); Sodium Level 139 mmol/L (136-145)
[2019-07-13 02:30] LABS: Amphetamine Urine VISTA POSITIVE (<1000 ng/mL); Barbiturate Urine VISTA NEGATIVE (< 200 ng/mL); Benzodiazepine Urine VISTA NEGATIVE (< 200 ng/mL); Cocaine Urine VISTA NEGATIVE (< 300 ng/mL); Ecstacy Urine VISTA NEGATIVE (< 500 ng/mL); Methadone Urine VISTA NEGATIVE (< 300 ng/mL); PCP Urine VISTA NEGATIVE (< 25 ng/mL); THC Urine VISTA POSITIVE (< 50 ng/mL); Vista UDS pH Range 6
[2019-07-13] MEDS: 0.9% Saline Lock 10 ML Syringe IV (03:38)
[2019-07-13] MEDS: Lactated Ringers 1,000 ML 125 ML IV (03:38)
[2019-07-13 03:49] LABS: HIV - WCH Non-Reactive (Nonreactive)
[2019-07-13] MEDS: Buprenorphine HCl 2 MG TAB.SUBL SL ×3 (04:31→20:53)
--- NOTE | 2019-07-13 09:24 | CASEMGMT ---
KAITLYN called Amanda at [employer] and left her a voice mail letting her know about patient. Manuela AUGUSTIN MSW
--- NOTE | 2019-07-13 11:15 | CASEMGMT ---
KAITLYN spoke with patient financial services and patient's [employer] termed the end of May. Patient needs to call [facility] to see what they need him to do. KAITLYN spoke with patient and let him know this information. SW also gave him the number on paper. Manuela AUGUSTIN MSW
--- NOTE | 2019-07-13 11:31 | ADDICTION ---
This card writer hand met with patient in his room. He was asleep upon this card writer hand's arrival and refused to meet for assessment. Patient noted that he plans to follow up with [facility] for ongoing services upon discharge from [facility]. This card writer hand offered to see patient tomorrow to start intake paperwork for [facility] and to complete assessment. He was receptive. This card writer hand will see patient tomorrow at the planned time of 10am. This card writer hand will inform [facility] social scientist.
[2019-07-13] MEDS: Ibuprofen 600 MG Tablet PO (12:10)
[2019-07-13] MEDS: Dicyclomine 10 MG Capsule 20 MG PO (12:10)
[2019-07-13] MEDS: Methocarbamol 750 MG Tablet 1500 MG PO (15:38)
[2019-07-13] MEDS: Gabapentin 300 MG Capsule PO (15:39)
[2019-07-13] MEDS: cloNIDine HCl 0.1 MG Tablet PO (15:39)
[2019-07-14] MEDS: Dicyclomine 10 MG Capsule 20 MG PO ×2 (01:55→09:55)
[2019-07-14 04:21] VITALS: BP 159/108; PULSE 80; RESP 16; TEMP 36.8; O2SAT 94
[2019-07-14] MEDS: Buprenorphine HCl 2 MG TAB.SUBL SL ×3 (04:23→20:34)
[2019-07-14 08:06] LABS: HEPATITIS B SURFACE AG Negative (Negative); Hepatitis A AB, Total Negative (Negative); Hepatitis A IgM Antibody Negative (Negative); Hepatitis B Core AB IgM Negative (Negative); Hepatitis B Core Ab Total Negative (Negative); Hepatitis C Ab 0.1 s/co ratio (0.0-0.9)
[2019-07-14] MEDS: Ondansetron 8 MG Tablet PO (09:55)
[2019-07-14] MEDS: cloNIDine HCl 0.1 MG Tablet PO ×2 (09:56)
[2019-07-14] MEDS: Ibuprofen 600 MG Tablet PO ×2 (09:56→20:38)
[2019-07-14] MEDS: Gabapentin 300 MG Capsule PO (09:56)
--- NOTE | 2019-07-14 10:22 | ADDICTION ---
This filing writer met with patient in his room. He was difficult to rouse and repeatedly fell asleep during this filing writer's interview. Patient was admitted into [facility] for medical withdrawal management due to problematic heroin use. Patient states that he started using heroin via insufflation, at the age of 32 and has used one gram daily for 7 years. This filing writer was unable to collect enough information to complete ASAM assessment due to patient lack of engagement and continued falling asleep during assessment. This filing writer asked patient if he has called [employer] to activate his Medicaid- patient denied and returned to sleep. Patient did not actively participate in discharge planning during this visit and was uncooperative throughout session. Patient pulled his sheet over his head and turned away from this filing writer. Patient reported that he plans to get out of here and go to [facility] or something. This filing writer verified that client received the intake packet for [facility] and encouraged him to complete intake packet while at [facility]. This filing writer left patient a business card with direct phone number and office phone number for him to utilize upon discharge from medical withdrawal management. Patient was unwilling to sign JONATAN for [facility]. Patient asleep when this filing writer left room.
[2019-07-14 14:15] VITALS: BP 137/85; PULSE 73; RESP 18; TEMP 36.3; O2SAT 96
--- NOTE | 2019-07-14 15:39 | PCM.PROGNOTE ---
Patient Problems: Active and Suspected Problems (Last Reviewed 09/28/18 @ 14:26 by Amirah Manrique) Acute opioid withdrawal (Acute) Heroin use (Acute) Subjective: Patient was seen and examined today, patient remained lethargic, I discontinued a few of his medications due to concerns that these medications may be causing sedation. Patient had a brief discussion with [facility] today, patient's plan is to follow-up with outpatient [facility] sometime earlier in the week. Patient understands that he will not be given any medications when he is discharged from the hospital, his plan is to be discharged tomorrow to home. She exhibits no symptoms of opiate withdrawal, he does not appear to be nervous or tremorous. - Physical Exam Vitals/I&O's: Vital Signs Temp Pulse Resp BP Pulse Ox 97.4 F L 73 18 137/85 H 96 07/14/19 14:15 07/14/19 14:15 07/14/19 14:15 07/14/19 14:15 07/14/19 14:15 Oxygen Delivery Method Room Air Weight: 122.5 kg Body Mass Index (BMI) 35.6 Intake and Output for Last 24 Hours 07/12/19 07/13/19 07/14/19 23:59 23:59 23:59 Intake Total 1100.00 / 1100.00 605 / 605 Balance 1100.00 / 1100.00 605 / 605 General: Alert, Oriented x3, Cooperative, No apparent distress, Well developed HEENT: Atraumatic, PERRLA, EOMI, Normocephalic Oral: Moist Mucosa Neck: Supple, No JVD, Trachea Midline, Thyroid Normal Size and Texture Lungs: Clear to auscultation, Normal air movement, No rhonchi, No wheeze, No rales Cardiovascular: Regular rate, Regular Rhythm, Normal S1, Normal S2, No murmurs, PMI Normal, No rub noted Abdomen: Bowel Sounds Present, Soft, Non Tender, Non-Distended, No hernias noted Extremities: No clubbing, No cyanosis, No edema, Capillary Refill Less than 3 Seconds Skin: No rashes, No breakdown Musculoskeletal: No Tenderness to Palpation of Joints or Extremities Neurological: Cranial nerves II-XII grossly intact, Neuro grossly intact, Sensory exam intact to light touch and pain, Coordination normal Psych/Mental Status: Normal Affect, Appropriate, Alert and oriented to time, place, person, mood and affect Current Medications Acetaminophen (Tylenol) 500 mg PO Q4H PRN PRN PRN Reason: Temp > 100.4 F Buprenorphine HCl (Buprenorphine Hcl) 2 mg SL Q8H ETHAN; Taper Stop: 07/16/19 04:29 Last Admin: 07/14/19 12:37 Dose: 2 mg Documented by: Ibuprofen (Motrin) 600 mg PO Q8H PRN PRN PRN Reason: Pain Score 1-01/12 Last Admin: 07/14/19 09:56 Dose: 600 mg Documented by: Loperamide HCl (Imodium) 2 mg PO Q4H PRN PRN PRN Reason: LOOSE STOOLS Ondansetron HCl (Zofran) 8 mg PO Q8H PRN PRN PRN Reason: NAUSEA Last Admin: 07/14/19 09:55 Dose: 8 mg Documented by: Sodium Chloride () 10 - 40 ml IV UD PRN PRN Reason: SALINE FLUSH Last Admin: 07/13/19 03:38 Dose: 10 ml Documented by: Medical Necessity - Tobacco Use Smoking Status: Never smoker Tobacco Use: Non-smoker Assessment/Plan All Active Problems (Last Reviewed 09/28/18 @ 14:26 by Amirah Manrique) Acute opioid withdrawal (Acute) Heroin use (Acute) Heroin overdose (Acute) #1 acute opiate withdrawal-continue present treatment #2 essential hypertension-I will place the patient back on bisoprolol-patient takes this as an outpatient #3 opiate addiction Inpatient E&M: 52933 Subs Hosp L2
[2019-07-14 16:00] VITALS: BP 150/110; PULSE 82; RESP 18; TEMP 36.4; O2SAT 95
[2019-07-14] MEDS: Bisoprolol Fumarate 5 MG Tablet PO ×2 (17:10)
[2019-07-14 22:00] VITALS: BP 146/87; PULSE 71; RESP 16; TEMP 37; O2SAT 97
[2019-07-15] MEDS: Ondansetron 8 MG Tablet PO (00:45)
[2019-07-15 04:00] VITALS: BP 138/82; PULSE 74; RESP 16; TEMP 36.9; O2SAT 98
[2019-07-15] MEDS: Buprenorphine HCl 2 MG TAB.SUBL SL (04:48)
[2019-07-15 10:00] VITALS: BP 162/98; PULSE 64; RESP 18; TEMP 36.4; O2SAT 98
--- NOTE | 2019-07-15 10:02 | DCINST_ITS ---
- Discharge Diagnoses Current Active Problems: Current Active and Chronic Problems (Last Reviewed 09/28/18 @ 14:26 by Amirah Manrique) Acute opioid withdrawal (Acute) Heroin use (Acute) HTN (hypertension) (Chronic) Obesity (BMI 30-39.9) (Chronic) You will use the following diet at home:: No restrictions Your food should be the consistency of: Regular Your liquids should be the consistency of: Regular/Thin Discharge Activity: Return to Normal Activity Weight Bearing Status: Full weight bearing Additional Instructions: FOLLOW UP WITH 180 SCHEDULED Allergies/Adverse Reactions: Allergies No Known Allergies Allergy (Verified 07/13/19 01:42) Medications to take at Discharge Bisoprolol Fumarate 5 mg PO DAILY 07/13/19 Primary Care Physician: Antolin Larios MD [Primary Care Provider] - Please follow up with your Primary Care Physician in: SCHEDULED Test Results: Test results from this visit will be discussed in further detail at your follow- up appointment, if applicable.
[2019-07-15] MEDS: Bisoprolol Fumarate 5 MG Tablet PO (10:24)
[2019-07-15 14:47] LABS: Hep B Surface Antibodies Reactive (.)
--- NOTE | 2019-07-16 09:17 | DS.PCM_ITS ---
Discharge Date and Diagnosis Date of Admission: 07/13/19 Date of Discharge: 07/15/19 - Primary Discharge Diagnosis #1 acute opiate withdrawal #2 essential hypertension #3 opiate addiction - Secondary Discharge Diagnosis Chronic Problems (Last Reviewed 09/28/18 @ 14:26 by Amirah Manrique) HTN (hypertension) (Chronic) Obesity (BMI 30-39.9) (Chronic) Polysubstance dependence (Chronic) Hospital Course and Treatment Operations: None Procedures: None Summary of Care Provided: The patient is a 39 year old M who was seen in the emergency room at [facility] with a request to undergo detox services due to heroin addiction and withdrawal. Lab in the emergency room was unremarkable except for a tox screen positive for amphetamines and cannabinoids, patient was admitted to PCU and orders were entered using the detox order set. During the patient's hospitalization, he communicated with 180 concerning follow-up after he was released from the hospital. Patient showed no signs of serious withdrawal during his hospitalization. There were no complications noted. On 07/15/2019, patient was seen and examined: On examination he appeared in good health and spirits. Vital signs as documented. Skin warm and dry and without overt rashes. Neck without JVD, neck was supple, trachea midline, thyroid was normal. Lungs clear bilaterally, normal air movement was noted. Heart exam notable for regular rhythm, normal sounds and absence of murmurs, rubs or gallops. Abdomen unremarkable and without evidence of organomegaly, masses, or abdominal aortic enlargement. Bowel sounds are present, abdomen is not distended. Extremities nonedematous, no cyanosis was noted, no clubbing was noted. Neuro: Cranial nerves II through XII are grossly intact, no focal motor deficits were noted, sensation to light touch and pinprick intact, motor exam 5/5 throughout. Psych: Patient is alert and oriented x3, he does not appear anxious or depressed, he does not appear agitated. Patient was discharged on 07/14/2021 home in stable condition. - Physical Exam Vitals/I&O's: Vital Signs Temp Pulse Resp BP Pulse Ox 97.5 F L 64 18 162/98 H 98 07/15/19 10:00 07/15/19 10:00 07/15/19 10:00 07/15/19 10:00 07/15/19 10:00 Oxygen Delivery Method Room Air Weight: 122.5 kg Body Mass Index (BMI) 35.6 Intake and Output for Last 24 Hours 07/14/19 07/15/19 07/16/19 23:59 23:59 23:59 Intake Total 1005 / 1505 860 / 860 Balance 1005 / 1505 860 / 860 Laboratory Results 07/13/19 01:50: Hepatitis A IgM Ab Negative, Hepatitis A Ab Total Negative, Hep Bs Antigen Negative, Hep B Core Total Ab Negative, Hep B Core IgM Ab Negative, Hepatitis C Ab Confirm 0.1, Hep C Confirm Com 1 Comment Discharge Activity: Return to Normal Activity Weight Bearing Status: Full weight bearing Home Medications: Medications to take at Discharge Bisoprolol Fumarate 5 mg PO DAILY 07/13/19 Primary Care Physician: Antolin Larios MD [Primary Care Provider] - Please follow up with your Primary Care Physician in: SCHEDULED Disposition: Home Minutes spent on discharge:: 31 Patient Condition:: Stable Medical Necessity - Tobacco Use Smoking Status: Never smoker Tobacco Use: Non-smoker Meaningful Use Info Meaningful Use Diagnoses (Choose all that apply): None applicable Inpatient E&M: 82717 Disch Hosp
== END 2019-07-15 10:53 | disposition home or self-care (01) | DRG 897 ==
LOC: ED 02:15 → PCU 02:27
PROVIDERS: Admitting Provider Family Medicine; Emergency Provider Emergency Medicine; PCP Family Medicine; Visit Provider Internal Medicine
DX: F11.23 Opioid dependence with withdrawal (principal); I10 Essential (primary) hypertension; G25.81 Restless legs syndrome; I73.9 Peripheral vascular disease, unspecified; G47.33 Obstructive sleep apnea (adult) (pediatric); E66.9 Obesity, unspecified; Z68.35 Body mass index [BMI] 35.0-35.9, adult; Z79.899 Other long term (current) drug therapy
CPT/HCPCS: 80053; 80307; 80320; 85025; 86703; 86704; 86705; 86706; 86708; 86709; 86803; 87340; 99283; J7120; A4216; G0480; J2405

== ENCOUNTER 2019-07-24 13:36 | Emergency (ER) | payer MEDICAID, SELFPAY ==
[2019-07-13 03:02] VITALS: BMI 35.6
[2019-07-24] VITALS (8 sets, daily range): BP systolic 102–181; BP diastolic 67–107; PULSE 63–103; RESP 15–20; TEMP 37.4; O2SAT 93–98; BMI 39.5
--- NOTE | 2019-07-24 13:39 | EKG12_ITS ---
Test Reason : Blood Pressure : / mmHG Vent. Rate : 112 BPM Atrial Rate : 112 BPM P-R Int : 164 ms QRS Dur : 080 ms QT Int : 312 ms P-R-T Axes : 064 046 032 degrees QTc Int : 425 ms Sinus tachycardia Low voltage QRS (limb leads) Confirmed by CRISTA SOTELO, LUIS ([id number]), editorial specialist BEAU OLSON ([id number]) on 07/26/2019 9:37:20 AM Referred By: Confirmed By:LUIS TOBIN MD
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
[2019-07-24] MEDS: Haloperidol Lactate 5 MG/ML Vial 10 MG IM ×2 (14:00→15:44)
[2019-07-24] MEDS: LORazepam 2 MG/ML Syringe IM (14:00)
--- NOTE | 2019-07-24 14:01 | ED.RN ---
THIS NURSE AND 3 OTHER STAFF MEMBERS IN THE ROOM TO ATTEMPT TO GET AN IV. PT BEGAN MOVING AROUND IN THE BED AND YELLING. ATTEMPTED TO GET PT TO LAY ON HIS BACK FOR THE IV. PT SWINGING HIS ARMS AND YELLING LOUDER. PT BEGAN KICKING HIS LEGS. DR DANIELS IN THE ROOM. IM MEDICATIONS ORDERED
[2019-07-24 14:06] LABS: Bacteria 0 SEEN /hpf (None Seen); Mucous, Urine 0 SEEN /hpf (<or=2+); Red Blood Cells-Urine 0 SEEN /hpf (0-5); Squamous Epithelial Cells - UA 0 SEEN /hpf (0-5); White Blood Cells 0 SEEN /hpf (0-5)
[2019-07-24 14:19] LABS: Color, Urine Straw (Yellow); Glucose, Dipstick Normal (Normal); Ketone-Dipstick Negative (Negative); Leukocyte Esterase-Dipstick Negative /ul (Negative); Nitrite-Dipstick Negative (Negative); Occult Blood-Urine Negative /ul (Negative); Protein-Dipstick Negative (Negative); Urine Bilirubin Dipstick Negative (Negative); Urine Clarity Clear (Clear); Urine Urobilinogen Normal (Normal)
[2019-07-24 14:25] LABS: Amphetamine Urine VISTA POSITIVE (<1000 ng/mL); Barbiturate Urine VISTA NEGATIVE (< 200 ng/mL); Benzodiazepine Urine VISTA NEGATIVE (< 200 ng/mL); Cocaine Urine VISTA NEGATIVE (< 300 ng/mL); Ecstacy Urine VISTA NEGATIVE (< 500 ng/mL); Methadone Urine VISTA NEGATIVE (< 300 ng/mL); PCP Urine VISTA NEGATIVE (< 25 ng/mL); THC Urine VISTA NEGATIVE (< 50 ng/mL); Vista UDS pH Range 7
[2019-07-24 14:56] LABS: Absolute Lymphocyte Count 1.47 X10^3/uL (0.83-4.51); Absolute Neutrophil Count 11.2 X10^3/uL (2.0-7.7); Basophil# 0.03 X10^3/uL; Basophil% 0.2 % (0-1); Eosinophil# 0.11 X10^3/uL; Eosinophils% 0.8 % (0-5); Hemoglobin 15.3 g/dL (13.0-16.5); Lymphocyte # 1.47 X10^3/ul (4.0); Lymphocyte % 10.7 % (19-41); Mean Corpuscular Hgb 29.1 pg (27.0-32.0); Mean Corpuscular Volume 85.7 fL (80-94); Mean Platelet Vol. 9.8 fl (6.2-12.0); Monocyte# 0.81 X10^3/uL; Monocyte% 5.9 % (0-10); NRBC Flagged by Analyzer 0 % (0-5); Platelet Count 362 K/mm3 (150-450); RBC Distribution Width CV 12.5 % (11.6-14.6); Red Blood Count 5.25 M/mm3 (4.6-6.2); White Blood Count 13.7 K/mm3 (4.4-11.0)
[2019-07-24 15:03] LABS: Partial Thromboplast Time 31.2 Seconds (24.1-36.2); Prothrombin Time (Protime)PT. 12.9 SECONDS (11.7-14.9)
[2019-07-24 15:10] LABS: ALB/GLOB Ratio 0.8 RATIO (0.9-2.4); AST(SGOT) 25 U/L (15-37); Alanine Aminotransfer ALT/SGPT 35 U/L (16-61); Albumin, Serum 3.7 g/dL (3.2-5.0); Alkaline Phosphatase 93 U/L (45-117); Anion Gap 4 (5-15); BUN 11 mg/dL (7-18); BUN/Creat Ratio 12.1 RATIO (10-20); Calcium,Total 8.9 mg/dL (8.5-10.1); Chloride 102 mmol/L (98-107); Creatinine, Serum 0.91 mg/dL (0.70-1.30); EST Glomerular Filtration Rate 99 mL/min (>60); Est Glom Filt Rate - Afr Amer 119 mL/min (>60); Estimated Creatinine Clearance 112.53 ml/min; Globulin 4.4 g/dL (2.2-4.2); Glucose 103 mg/dL (74-106); Lipase 455 U/L (73-393); Potassium 3.4 mmol/L (3.5-5.1); Protein, Total 8.1 g/dL (6.4-8.2); Sodium Level 138 mmol/L (136-145)
[2019-07-24 15:15] LABS: Alcohol, Blood (Medical)-Serum < 3.0 mg/dL
[2019-07-24 15:19] LABS: Acetaminophen (Tylenol) Level < 2.0 ug/mL (10.0-30.0); Salicylate < 1.7 mg/dL (2.8-20.0)
--- NOTE | 2019-07-24 15:47 | ED.RN ---
PT AWAKE AND AMBULATORY INTERMITTENTLY TO USE RESTROOM. PT OFFERED ASSISTANCE TO USE URINALS OR AMBULATE TO BATHROOM. PT WOKE UP AND URINATED ON COMPUTER AND EQUIPMENT AND REMOVED PERIPHERAL IV FROM ARM. PT FURTHER MEDICATED AND ASSISTED BACK INTO BED, BED RAILS UP X2, CALL LIGHT IN REACH. PT DOES NOT RESPOND WHEN SPOKEN TO.
[2019-07-25] VITALS: RESP 14
[2019-07-25 01:00] VITALS: RESP 16
[2019-07-25 02:00] VITALS: RESP 16
[2019-07-25 03:00] VITALS: BP 150/89; PULSE 92; RESP 16; O2SAT 99
--- NOTE | 2019-07-25 03:35 | ED.RN ---
THIS RN WENT IN TO ASSESS PT VITALS AND SEE IF THERE WERE ANY PT NEEDS. PT WOKE UP EASILY TO VERBAL STIMULI. HE ASKED WHAT HAPPENED. THIS RN INFORMED HIM BRIEFLY OF WHAT HAPPENED. PT WAS GIVEN A BEVERAGE, SOCKS AND A PHONE TO TALK TO A FRIEND FOR A RIDE HOME. DR. ROONEY CAME IN TO ASSESS PATIENT AND DEEMED HIM SAFE TO GO HOME. PT STATES HIS FRIEND WILL COME PICK HIM UP AND WILL WAIT IN ED ROOM UNTIL SHE ARRIVES. NO OTHER NEEDS AT THIS TIME
== END 2019-07-25 04:52 | disposition home or self-care (01) ==
PROVIDERS: Emergency Provider Emergency Medicine; PCP Family Medicine
DX: F11.10 Opioid abuse, uncomplicated (principal); F15.10 Other stimulant abuse, uncomplicated; R45.1 Restlessness and agitation; E66.9 Obesity, unspecified; Z87.891 Personal history of nicotine dependence
CPT/HCPCS: 80053; 80307; 80320; 80329; 81001; 83690; 84484; 85025; 85610; 85730; 93005; 96372; 99285; A4216; G0480

== ENCOUNTER 2019-10-08 02:49 | Emergency (ER) | payer MEDICAID, SELFPAY ==
[2019-07-24 13:37] VITALS: BMI 39.5
[2019-10-08 02:50] VITALS: BP 200/110; PULSE 91; RESP 16; TEMP 37.2; O2SAT 97; BMI 36.6
[2019-10-08] MEDS: Tetracaine 0.5% Ophthalmic Bottle 1 DRP RIGHT EYE (03:34)
[2019-10-08] MEDS: Fluorescein 1 MG STRIP 1 STRIP RIGHT EYE (03:34)
--- NOTE | 2019-10-08 04:06 | ED.DCSUM_ITS ---
- ER Visit Summary Date of Service: 10/08/19 Chief Complaint: Right eye injury and discomfort History of Present Illness: The patient is a 39 M wears contacts and glasses. Today he had his contacts in. He was doing yard work when he thinks he cut his right eye or injured his right eye on a scrub or bolus. He had his contact at that time. The contact in the right eye is now out. The left eye contact is in. He denies any prior eye surgery. Injury occurred this morning. Physical Examination: There is malar distress vital signs stable afebrile. H EENT exam pupils round reactive laser motions are intact. Appears of a corneal abrasion on his right eye. The right eye contact is out. Tetracaine was instilled and then fluorescein. Under slit lamp examination there is a very small superficial abrasion on the midportion of the pupil. Extra motions are intact. No palsy. No foreign body. Upper and lower lids were everted. No foreign body or trauma. No signs of infection no discharge or drainage. No facial trauma. No preauricular lymphadenopathy. No periorbital swelling or redness. Lungs are clear. Heart regular rhythm. Otherwise exam unremarkable. Test Results: Visual acuity 20/200 right eye but he did not have this contact in his right eye. Left eye with contact in 2039. Bilaterally 20/50. Emergency Department Course and Treatment: Pain is consistent with a small corneal abrasion on the right. Tetracaine for pain. A straight ophthalmic ointment. Treatment Plan: Antibiotic ointment. Tetracaine. Motrin. Keep his contact out for at least the next 3 days. Follow-up with ophthalmology for further evaluation. Disposition: Discharge Impression: Acute right eye corneal abrasion This note was generated with [employer] dictation software. It may contain incorrect words, spelling, and punctuation that were not noted in review of the chart prior to signing ED Disposition - Plan for ED Patient: Referrals: Antolin Larios MD [Primary Care Provider] -
--- NOTE | 2019-10-08 04:09 | ED.DEP ---
ED Disposition - Plan for ED Patient: Disposition: Home or Assisted Living Instructions: ED Corneal Abrasion Referrals: Pablo Oleary MD [STAFF PHYSICIAN] - 1-2 Days if not improving Additional Instructions: Eye ointment 2-3 times a day till gone. Sunglasses to prevent glare. Leave your right eye contact out until reevaluated or feels completely better. You may use the eyedrops in the right eye called tetracaine for pain relief. You can only use those till the end of today. If you use these long-term it retards healing. You have what is called a corneal abrasion a small scratch your right eye which should heal over the next several days.
[2019-10-08 04:41] VITALS: RESP 16
== END 2019-10-08 04:45 | disposition home or self-care (01) ==
PROVIDERS: Emergency Provider Emergency Medicine; PCP Family Medicine
DX: S05.01XA Injury of conjunctiva and corneal abrasion without foreign body, right eye, initial encounter (principal); W22.8XXA Striking against or struck by other objects, initial encounter; Y93.H2 Activity, gardening and landscaping; Y92.9 Unspecified place or not applicable; Y99.9 Unspecified external cause status; I10 Essential (primary) hypertension; Z79.899 Other long term (current) drug therapy
CPT/HCPCS: 99283

== ENCOUNTER → 2020-03-01 08:55 | Outpatient (CLI) | payer MEDICAID, SELFPAY ==
[2020-03-01 10:45] LABS: Absolute Neutrophil Count 3.9 X10^3/uL (2.0-7.7); Basophil# 0.02 X10^3/uL; Basophil% 0.3 % (0-1); Eosinophil# 0.35 X10^3/uL; Eosinophils% 4.9 % (0-5); Hemoglobin 14.4 g/dL (13.0-16.5); Mean Corp Hgb Conc 32.7 g/dL (32-36); Mean Corpuscular Hgb 28.8 pg (27.0-32.0); Mean Platelet Vol. 9.4 fl (6.2-12.0); Monocyte# 0.61 X10^3/uL; Monocyte% 8.6 % (0-10); NRBC Flagged by Analyzer 0 % (0-5); Neutrophil % 54.9 % (47-70); Platelet Count 364 K/mm3 (150-450); RBC Distribution Width CV 12.5 % (11.6-14.6); White Blood Count 7.1 K/mm3 (4.4-11.0)
[2020-03-01 11:11] LABS: ALB/GLOB Ratio 0.6 RATIO (0.9-2.4); AST(SGOT) 29 U/L (15-37); Alanine Aminotransfer ALT/SGPT 41 U/L (16-61); Albumin, Serum 3.3 g/dL (3.2-5.0); Alkaline Phosphatase 124 U/L (45-117); Anion Gap 4 (5-15); BUN 15 mg/dL (7-18); BUN/Creat Ratio 17.9 RATIO (10-20); Calcium,Total 9.3 mg/dL (8.5-10.1); Chloride 98 mmol/L (98-107); Creatinine, Serum 0.84 mg/dL (0.70-1.30); EST Glomerular Filtration Rate 108 mL/min (>60); Est Glom Filt Rate - Afr Amer 130 mL/min (>60); Globulin 5.2 g/dL (2.2-4.2); Glucose 87 mg/dL (74-106); Potassium 3.5 mmol/L (3.5-5.1); Protein, Total 8.5 g/dL (6.4-8.2); Sodium Level 136 mmol/L (136-145)
[2020-03-01 11:16] LABS: Microalbumin,Random Urine 10.7 mg/L (NO RANGE EST.); Microalbumin:Creatinine Ratio 10.2 mg/g CRE (<30 mg/g CRE)
[2020-03-01 13:39] LABS: HIV - WCH Non-Reactive (Nonreactive); Hepatitis B Surface Antigen Non-Reactive (Nonreactive); Hepatitis C Antibody Non-Reactive (Nonreactive)
[2020-03-07 02:17] LABS: Rapid Plasmin Reagin (RPR) NONREACTIVE (NONREACTIVE)
== END ==
PROVIDERS: PCP Family Medicine; Referring Provider Family Medicine; Visit Provider Family Medicine
DX: F11.10 Opioid abuse, uncomplicated (principal)
CPT/HCPCS: 36415; 80053; 82043; 82570; 85025; 86592; 86703; 86803; 87340

== ENCOUNTER → 2020-09-11 09:42 | Outpatient (CLI) | payer MEDICAID, SELFPAY ==
[2020-09-11 12:14] LABS: Absolute Neutrophil Count 2.6 X10^3/uL (2.0-7.7); Basophil# 0.01 X10^3/uL; Basophil% 0.2 % (0-1); Eosinophils% 3.8 % (0-5); Hemoglobin 13.7 g/dL (13.0-16.5); Lymphocyte % 35.6 % (19-41); Mean Corp Hgb Conc 33.4 g/dL (32-36); Mean Corpuscular Hgb 28.8 pg (27.0-32.0); Mean Corpuscular Volume 86.1 fL (80-94); Mean Platelet Vol. 9.6 fl (6.2-12.0); Monocyte# 0.67 X10^3/uL; Monocyte% 12.6 % (0-10); NRBC Flagged by Analyzer 0 % (0-5); Neutrophil # 2.55 X10^3/uL (2.7-7.7); Neutrophil % 47.8 % (47-70); Platelet Count 364 K/mm3 (150-450); RBC Distribution Width CV 12.4 % (11.6-14.6); Red Blood Count 4.76 M/mm3 (4.6-6.2); White Blood Count 5.3 K/mm3 (4.4-11.0)
[2020-09-11 12:46] LABS: ALB/GLOB Ratio 0.7 RATIO (0.9-2.4); AST(SGOT) 30 U/L (15-37); Alanine Aminotransfer ALT/SGPT 35 U/L (16-61); Albumin, Serum 3.3 g/dL (3.2-5.0); Alkaline Phosphatase 112 U/L (45-117); Anion Gap 8 (5-15); BUN 14 mg/dL (7-18); BUN/Creat Ratio 14.3 RATIO (10-20); Calcium,Total 8.8 mg/dL (8.5-10.1); Chloride 101 mmol/L (98-107); Creatinine, Serum 0.98 mg/dL (0.70-1.30); EST Glomerular Filtration Rate 90 mL/min (>60); Est Glom Filt Rate - Afr Amer 109 mL/min (>60); Globulin 4.8 g/dL (2.2-4.2); Glucose 95 mg/dL (74-106); Potassium 3.3 mmol/L (3.5-5.1); Protein, Total 8.1 g/dL (6.4-8.2); Sodium Level 137 mmol/L (136-145)
== END ==
PROVIDERS: PCP Family Medicine; Referring Provider Family Medicine; Visit Provider Family Medicine
DX: I10 Essential (primary) hypertension (principal); I73.9 Peripheral vascular disease, unspecified
CPT/HCPCS: 36415; 80053; 85025

== ENCOUNTER → 2022-07-20 | Outpatient (CLI) | payer MEDICAID, SELFPAY ==
[2022-07-20 15:41] LABS: Absolute Lymphocyte Count 2.56 X10^3/uL (0.83-4.51); Absolute Neutrophil Count 5.3 X10^3/uL (2.0-7.7); Basophil# 0.02 X10^3/uL; Basophil% 0.2 % (0-1); Eosinophil# 0.24 X10^3/uL; Eosinophils% 2.8 % (0-5); Hematocrit 50.5 % (40-54); Hemoglobin 17.4 g/dL (13.0-16.5); Lymphocyte # 2.56 X10^3/ul (0.83-4.51); Lymphocyte % 29.4 % (19-41); Mean Corp Hgb Conc 34.5 g/dL (32-36); Mean Corpuscular Hgb 30.3 pg (27.0-32.0); Mean Platelet Vol. 10.2 fl (6.2-12.0); Monocyte# 0.58 X10^3/uL; Monocyte% 6.7 % (0-10); NRBC Flagged by Analyzer 0 % (0-5); Neutrophil # 5.27 X10^3/uL (2.7-7.7); Neutrophil % 60.6 % (47-70); Platelet Count 392 K/mm3 (150-450); RBC Distribution Width CV 11.6 % (11.6-14.6); RBC Distribution Width SD 37.2 fl (35.1-43.9); Red Blood Count 5.74 M/mm3 (4.6-6.2); White Blood Count 8.7 K/mm3 (4.4-11.0)
[2022-07-20 15:59] LABS: D-Dimer Quantitative (DVT/PE) < 0.27 FEU/ug/m (0.27-0.49)
[2022-07-20 16:53] LABS: Vitamin D,25 Hydroxy 20.4 ng/mL
[2022-07-20 17:46] LABS: AST(SGOT) 23 U/L (15-37); Alanine Aminotransfer ALT/SGPT 34 U/L (16-61); Alkaline Phosphatase 90 U/L (45-117); Anion Gap 4 (5-15); BUN 18 mg/dL (7-18); BUN/Creat Ratio 17.8 RATIO (10-20); Calcium,Total 9.7 mg/dL (8.5-10.1); Chloride 101 mmol/L (98-107); Cholesterol 221 mg/dL (200); Creatinine, Serum 1.01 mg/dL (0.70-1.30); EST Glomerular Filtration Rate 86 mL/min (>60); Est Glom Filt Rate - Afr Amer 104 mL/min (>60); Free T3 3.1 pg/mL (2.18-3.98); Globulin 3.9 g/dL (2.2-4.2); Glucose 82 mg/dL (74-106); Hemoglobin A1c 5.4 % (3.8-5.6); High Density Lipoprotein 35 mg/dL; Potassium 3.8 mmol/L (3.5-5.1); Protein, Total 7.9 g/dL (6.4-8.2); Sodium Level 135 mmol/L (136-145); T4 Free Direct 0.96 ng/dL (0.76-1.46); Triglycerides 523 mg/dL
[2022-07-26 15:07] LABS: Testosterone, % Free 1.54 % (1.50-4.20); Testosterone, Free 5.48 ng/dL (5.00-21.00); Testosterone, Total 356 ng/dL (264-916)
== END | disposition home or self-care (01) ==
LOC: MTLAB 11:23
PROVIDERS: PCP Family Medicine
DX: E78.5 Hyperlipidemia, unspecified (principal); E34.9 Endocrine disorder, unspecified; E55.9 Vitamin D deficiency, unspecified; R73.03 Prediabetes
CPT/HCPCS: 36415; 80053; 80061; 82306; 82627; 83036; 84402; 84403; 84439; 84443; 84481; 85025; 85379; 82626

== ENCOUNTER 2023-07-05 18:21 | Emergency (ER) | payer SELFPAY ==
[2023-07-05] VITALS (18 sets, daily range): BP systolic 145–169; BP diastolic 75–115; PULSE 69–84; RESP 13–21; TEMP 36.6; O2SAT 95–99; BMI 38.0
--- NOTE | 2023-07-05 19:05 | EX.ED.DYSGE1 ---
HPI History of Present Illness Chief Complaint: Syncope Informant: patient Onset/Context/Timing Onset: Today Context: Sudden Onset Timing: Lasts (Few seconds) Quality: Syncope Location: Generalized Worsened by: Coughing, laughing Relieved by: Nothing Narrative Narrative: Patient presents with a syncopal episode that occurred today. Patient states he was laughing when he passed out. Patient states he also had been having some coughing recently. Patient states he was only out for a few seconds. Patient states he woke up immediately. Patient states he had the right side of his head. Patient denies any recent fevers or chills. Patient denies any symptoms currently other than a mild headache over the laceration area. Patient denies any palpitations. Patient denies any shortness of breath. PFSH [facility] Medical History (Updated 07/05/23 @ 22:[address] Antolin Newell DO) Hypertension PVD (peripheral vascular disease) Sleep apnea Home Medications guaifenesin 1 tab PO BID 07/05/23 [History Last Taken Unknown] Allergy/AdvReac Type Severity Reaction Status Date / Time No Known Allergies Allergy Verified 07/05/23 18:31 Family History Other Acromioclavicular joint arthritis CVA (cerebral vascular accident) Cancer Heart disease Hypertension Surgical History (Updated 07/05/23 @ 22:[address] Antolin Newell DO) S/P ORIF (open reduction internal fixation) fracture Social History (Updated 07/05/23 @ 22:[address] Antolin Newell DO) Smoking Status: Never smoker Smokeless tobacco user: chewing tobacco substance use type: marijuana ROS ROS ED Constitutional Constitutional ED: Denies chills or fever(s) Eyes Eyes: Denies blurry vision or change in vision ENT ENT ED: Reports rhinorrhea; Denies sore throat Cardiovascular Cardiovascular: Reports chest pain; Denies palpitations Respiratory/Chest Respiratory/Chest: Reports cough; Denies dyspnea Gastrointestinal Gastrointestinal: Denies nausea or vomiting Genitourinary Genitourinary ED: Denies dysuria or hematuria Musculoskeletal Musculoskeletal: Denies back pain or neck pain Integumentary Denies abscess or rash Neurologic Neurologic: Denies headache(s) or weakness Allergic/Immunologic Allergic/Immunologic ED: Denies mouth swelling or urticaria EXAM Physical Exam Const Vital Signs: 07/05/23 18:24 07/05/23 18:32 07/05/23 18:32 Temperature 97.8 F Temperature Source Temporal Pulse Rate 84 Respiratory Rate 17 Respiratory Effort Short of Breath Normal Respiratory Depth Normal Respiratory Pattern Normal Normal Blood Pressure 163/108 H Blood Pressure Mean 126 Pulse Ox 95 Oxygen Delivery Method Room Air Room Air 07/05/23 18:58 07/05/23 19:00 07/05/23 19:15 Temperature Temperature Source Pulse Rate 70 Respiratory Rate 15 Respiratory Effort Respiratory Depth Respiratory Pattern Blood Pressure 167/108 H 156/106 H Blood Pressure Mean 124 120 Pulse Ox 95 97 96 Oxygen Delivery Method Room Air 07/05/23 19:15 07/05/23 19:30 07/05/23 19:45 Temperature Temperature Source Pulse Rate 69 71 Respiratory Rate 14 13 Respiratory Effort Respiratory Depth Respiratory Pattern Blood Pressure 156/106 H 153/99 H 158/115 H Blood Pressure Mean 120 115 128 Pulse Ox 97 97 Oxygen Delivery Method Room Air 07/05/23 20:00 07/05/23 20:15 07/05/23 20:30 Temperature Temperature Source Pulse Rate 73 74 79 Respiratory Rate 14 18 15 Respiratory Effort Respiratory Depth Respiratory Pattern Blood Pressure 160/114 H Blood Pressure Mean 129 Pulse Ox 97 98 97 Oxygen Delivery Method Room Air 07/05/23 23:04 07/05/23 20:45 07/05/23 21:00 Temperature 97.8 F Temperature Source Pulse Rate 82 76 81 Respiratory Rate 16 20 H 18 Respiratory Effort Respiratory Depth Respiratory Pattern Blood Pressure 155/86 H 165/80 H Blood Pressure Mean 109 108 Pulse Ox 99 97 96 Oxygen Delivery Method Room Air 07/05/23 21:15 07/05/23 21:30 07/05/23 21:45 Temperature Temperature Source Pulse Rate 78 80 77 Respiratory Rate 21 H 15 17 Respiratory Effort Respiratory Depth Respiratory Pattern Blood Pressure 150/75 H 169/92 H Blood Pressure Mean 100 117 Pulse Ox 96 96 96 Oxygen Delivery Method Room Air 07/05/23 22:00 07/05/23 22:15 07/05/23 22:30 Temperature Temperature Source Pulse Rate 78 77 73 Respiratory Rate 19 H 16 14 Respiratory Effort Respiratory Depth Respiratory Pattern Blood Pressure 145/90 H Blood Pressure Mean 108 Pulse Ox 96 95 96 Oxygen Delivery Method Positive well nourished and well developed General Appearance ED: well developed and NAD HEENT Reports moist mucous membranes tenderness Neck supple and no JVD Resp normal respiratory effort and clear to auscultation bilaterally Cardio regular rate and regular rhythm GI non-tender and non-distended Palpation: soft Extremity normal to inspection Neuro oriented x3, CN's II-XII intact bilaterally and no sensory deficits noted Sensorium / Orientation: alert Motor Exam: strength 5/5 throughout Psych mental status grossly normal Skin Skin Narrative: There is a 4.5 cm full-thickness linear laceration over the right parietal scalp. There is mild gapping of the wound margins. There is mild bleeding noted. There is no bony crepitance or step-off. There are no foreign bodies noted. There is minimal tenderness. MDM MDM MDM Narrative Medical decision making narrative: Differential diagnosis includes syncope, intracranial bleeding, stroke, anemia, cardiac dysrhythmia, cardiac ischemia, and electrolyte abnormality. CT scan of the brain will be obtained to assess for stroke and intracranial bleeding. CBC will be obtained to assess for anemia and leukocytosis. Basic metabolic profile will be obtained to assess for electrolyte abnormality and renal function. EKG will be obtained to assess for cardiac dysrhythmia and cardiac ischemia. Lab Data Attestation: I reviewed the patient's lab results. Lab results narrative: CBC was reviewed and was essentially within normal limits. Basic metabolic profile was reviewed and was within normal limits. Labs: Laboratory Results - last 24 hr 07/05/23 18:07 WBC 8.5 RBC 5.52 Hgb 17.1 H Hct 48.8 MCV 88.4 MCH 31.0 MCHC 35.0 RDW Std Deviation 37.8 RDW Coeff of Lester 11.9 Plt Count 414 MPV 9.5 Immature Gran % (Auto) 0.600 Neut % (Auto) 45.5 L Lymph % (Auto) 38.6 Benton % (Auto) 10.0 Eos % (Auto) 4.7 Baso % (Auto) 0.6 Absolute Neuts (auto) 3.9 Absolute Lymphs (auto) 3.27 Nucleated RBC % 0 Sodium 136 Potassium 3.5 Chloride 101 Carbon Dioxide 29.0 Anion Gap 6 BUN 16 Creatinine 1.12 Estim Creat Clear Calc 120.50 Est GFR (MDRD) Af Amer 92 Est GFR (MDRD) Non-Af 76 BUN/Creatinine Ratio 14.3 Glucose 106 Calcium 9.0 Radiography Diagnostic Testing: Clinical Impression(s) from Imaging Studies Brain CT 07/05/23 19:15 IMPRESSION: No CT evidence of acute intracranial hemorrhage or injury. Small left parietal superficial scalp hematoma without evidence of underlying fracture. Electronically Signed: Dario Ramirez MD at 19:36 EDT , CT scan of the brain was obtained. There is no acute intracranial abnormality. This was interpreted by the radiologist and was also independently reviewed by myself. EKG Initial EKG: Attestation: I personally reviewed and interpreted this EKG as follows: Interpretation: Sinus Rhythm (71) and Non-Specific ST Changes Comments: EKG was obtained. On my independent interpretation, it showed a normal sinus rhythm with a rate of 71. HI interval, QRS interval, and QTc intervals were all normal. [place]min[place] was normal. There are nonspecific ST-T wave changes. Prior EKG tracings: available for review Prior: Unchanged (07/24/2019) Treatment and Re-Evaluation :: Patient was advised of his findings. Patient is low risk for syncope. Patient was advised that this is most likely due to his coughing and laughing. Patient was instructed to keep the wound clean and dry. Patient was instructed to follow-up with his primary care physician in 5 to 7 days for wound recheck and staple removal. Patient understood and was agreeable with the plan. All questions were answered. Procedures Lacerations Right parietal scalp: Length: 4.5 cm Depth: Sub Q Shape: Linear Prep: Sterile Conditions and Chlorhexadine Laceration repair: Irrigated, Lidocaine with epi, Local and Wound explored Irrigated (ml): 100 Number of Sutures/Sadia: 6 Suture Information: - (Baldwin) Discharge Plan Triage Chief Complaint: Syncope Other Complaint: ETOH Intox Fall Laceration ED Provider: Antolin Newell Dx/Rx/DC Orders Clinical Impression: Syncope and collapse, Laceration of scalp Instructions: ED Laceration Scalp Stitches or Baldwin, ED Fainting, Uncertain Cause Prescriptions: No Action guaifenesin [Mucinex] 1 tab PO BID Primary Care Provider: Antolin Larios Referrals: Antolin Larios MD [Primary Care Provider] - 7 Days for suture removal Disposition Disposition: Home, Self Care Discharge Date/Time: 07/05/23 23:05
--- NOTE | 2023-07-05 19:06 | EKG12_ITS ---
Test Reason : SYNCOPE Blood Pressure : / mmHG Vent. Rate : 071 BPM Atrial Rate : 071 BPM P-R Int : 184 ms QRS Dur : 078 ms QT Int : 378 ms P-R-T Axes : 065 -13 -02 degrees QTc Int : 410 ms Normal sinus rhythm Inferior infarct , age undetermined Abnormal ECG When compared with ECG of 24-JUL-2019 14:59, Vent. rate has decreased BY 41 BPM Inferior infarct is now Present Confirmed by GARRETT SOTELO, ABDOULAYE ([id number]), features editor ANA GREGORY ([id number]) on 07/07/2023 9:38:36 AM Referred By: Confirmed By:ABDOULAYE TUCKER MD
[2023-07-05] MEDS: Lidocaine 1% /Epi 1:100 (20ml) 20 ML Vial INFILT (19:12)
[2023-07-05] MEDS: 0.9% Normal Saline (1000mL) 1,000 ML 1000 ML IV (19:13)
--- NOTE | 2023-07-05 19:15 | CT_ITS ---
INDICATION: Syncope, head injury EXAMINATION: CT BRAIN - CT Head or Brain W/O Contrast Injection TECHNIQUE: Multiple axial images were obtained of the head without intravenous contrast. A radiation dose optimization technique was used for this scan. IV Contrast dosage and agent: None. COMPARISON: None FINDINGS: BRAIN PARENCHYMA: No intra- or extra-axial hemorrhage. No evidence of acute infarct. No intracranial mass or mass effect. Unremarkable white matter for age. There is preservation of the alvarado/white matter interface. Posterior fossa structures are unremarkable. CSF SPACES: Cerebral volume appropriate for age. No hydrocephalus. Basal cisterns are patent. CALVARIUM, SKULL BASE, PARANASAL SINUSES AND MASTOID AIR CELLS: Left posterior parietal small superficial scalp hematoma. No acute osseous finding. Diffuse mild mucoperiosteal thickening throughout much of the paranasal sinuses. Mastoid air cells are clear. ORBITS: Both globes, extraocular muscles, optic nerves and retrobulbar fat appear unremarkable. ASPECTS Score for Acute Strokes: 10 CT/Brain/Head without Contrast IMPRESSION: No CT evidence of acute intracranial hemorrhage or injury. Small left parietal superficial scalp hematoma without evidence of underlying fracture. Electronically Signed: Dario Ramirez MD at 19:36 EDT ,
[2023-07-05 19:16] LABS: Absolute Lymphocyte Count 3.27 X10^3/uL (0.83-4.51); Absolute Neutrophil Count 3.9 X10^3/uL (2.0-7.7); Basophil# 0.05 X10^3/uL; Basophil% 0.6 % (0-1); Eosinophils% 4.7 % (0-5); Hematocrit 48.8 % (40-54); Hemoglobin 17.1 g/dL (13.0-16.5); Lymphocyte # 3.27 X10^3/ul (0.83-4.51); Lymphocyte % 38.6 % (19-41); Mean Corpuscular Volume 88.4 fL (80-94); Mean Platelet Vol. 9.5 fl (6.2-12.0); Monocyte# 0.85 X10^3/uL; NRBC Flagged by Analyzer 0 % (0-5); Neutrophil # 3.86 X10^3/uL (2.7-7.7); Neutrophil % 45.5 % (47-70); Platelet Count 414 K/mm3 (150-450); RBC Distribution Width CV 11.9 % (11.6-14.6); RBC Distribution Width SD 37.8 fl (35.1-43.9); Red Blood Count 5.52 M/mm3 (4.6-6.2); White Blood Count 8.5 K/mm3 (4.4-11.0)
[2023-07-05 19:30] LABS: Anion Gap 6 (5-15); BUN 16 mg/dL (7-18); BUN/Creat Ratio 14.3 RATIO (10-20); Chloride 101 mmol/L (98-107); Creatinine, Serum 1.12 mg/dL (0.70-1.30); EST Glomerular Filtration Rate 76 mL/min (>60); Est Glom Filt Rate - Afr Amer 92 mL/min (>60); Glucose 106 mg/dL (74-106); Potassium 3.5 mmol/L (3.5-5.1); Sodium Level 136 mmol/L (136-145)
== END 2023-07-05 23:05 | disposition home or self-care (01) ==
PROVIDERS: Emergency Provider Emergency Medicine; PCP Family Medicine; Visit Provider Emergency Medicine
DX: S01.01XA Laceration without foreign body of scalp, initial encounter (principal); W01.10XA Fall on same level from slipping, tripping and stumbling with subsequent striking against unspecified object, initial encounter; R55 Syncope and collapse; I10 Essential (primary) hypertension; G47.30 Sleep apnea, unspecified; F17.220 Nicotine dependence, chewing tobacco, uncomplicated
CPT/HCPCS: 12002; 70450; 80048; 85025; 93005; 96360; 99285; J7030; A4216

== ENCOUNTER → 2024-06-15 | Outpatient (CLI) | payer BC, SELFPAY ==
[2024-06-15 18:06] LABS: Hematocrit 50.4 % (40-54); Mean Corp Hgb Conc 35.7 g/dL (32-36); Mean Corpuscular Hgb 31.4 pg (27.0-32.0); Mean Corpuscular Volume 87.8 fL (80-94); Mean Platelet Vol. 9.8 fl (6.2-12.0); Platelet Count 335 K/mm3 (150-450); RBC Distribution Width CV 12.1 % (11.6-14.6); RBC Distribution Width SD 38.3 fl (35.1-43.9); Red Blood Count 5.74 M/mm3 (4.6-6.2); White Blood Count 8.5 K/mm3 (4.4-11.0)
[2024-06-15 19:31] LABS: Microalbumin,Random Urine 47.2 mg/L (NO RANGE EST.); Microalbumin:Creatinine Ratio 105.1 mg/g CRE
[2024-06-15 21:02] LABS: ALB/GLOB Ratio 1.4 RATIO (0.9-2.4); AST(SGOT) 50 U/L (<=37); Alanine Aminotransfer ALT/SGPT 64 U/L (<=46); Albumin, Serum 4.6 g/dL (3.5-5.0); Alkaline Phosphatase 70 U/L (40-129); Anion Gap 12 (5-15); BUN 16 mg/dL (4-19); BUN/Creat Ratio 14.1 RATIO (10-20); Calcium,Total 9.6 mg/dL (7.6-11.0); Carbon Dioxide 25.2 mmol/L (21.0-32.0); Chloride 101 mmol/L (98-108); Cholesterol 261 mg/dL (<=200); Creatinine, Serum 1.11 mg/dL (0.70-1.20); EST Glomerular Filtration Rate 84 (>60); Globulin 3.4 g/dL (2.2-4.2); Glucose 87 mg/dL (70-99); High Density Lipoprotein 39 mg/dL; Low Density Lipoprotein Calc. 149 mg/dL; Potassium 4.4 mmol/L (3.3-5.1); Protein, Total 7.9 g/dL (5.9-8.4); Sodium Level 138 mmol/L (133-145); Total Bilirubin 0.44 mg/dL (0.00-1.30); Triglycerides 364 mg/dL; Very Low Density Lipoprotein 73 mg/dL (5-40); cholesterol:hdl ratio screen 6.62
== END | disposition home or self-care (01) ==
LOC: MTLAB 16:54
PROVIDERS: PCP Family Medicine; Referring Provider Family Medicine; Visit Provider Family Medicine
DX: I10 Essential (primary) hypertension (principal)
CPT/HCPCS: 36415; 80053; 80061; 82043; 82570; 85027

== ENCOUNTER → 2024-07-18 | Outpatient (CLI) | payer BC, SELFPAY ==
[2024-07-18 19:12] LABS: Hepatitis B Surface Antibody REAC; Hepatitis B Surface Antigen Nonreactive (Nonreactive); Hepatitis C Antibody Nonreactive (Nonreactive)
== END | disposition home or self-care (01) ==
LOC: MTLAB 15:55
PROVIDERS: PCP Family Medicine; Referring Provider Family Medicine; Visit Provider Family Medicine
DX: R74.8 Abnormal levels of other serum enzymes (principal)
CPT/HCPCS: 36415; 86706; 86803; 87340